=== PATIENT | female | born 1950 | race Caucasian/White ===

== ENCOUNTER 2016-06-09 19:20 | Inpatient (IN) | payer MEDICARE, OTHER ==
[~2016-06-09] VITALS: Ht 160 cm; Wt 124.0 kg
[~2016-06-09 19:20] MED LIST: NAPR-260 PO
[2016-06-09] MEDS ORDERED: ALBUTEROL 0.083% (NEB) 2.5 MG/3 ML AMP HHN STA (20:52)
[2016-06-09] MEDS ORDERED: IPRATROPIUM (NEB) 0.5 MG/2.5 ML AMP HHN ONE (21:00)
[2016-06-09] MEDS ORDERED: METHYLPREDNISOLONE 125 MG INJ IM ONE (21:00)
--- NOTE | 2016-06-09 22:38 | RADRPT ---
PROCEDURE: XR Chest. CLINICAL INDICATION: Cough. TECHNIQUE: Single frontal chest x-ray. COMPARISON: 07/17/2015 FINDINGS: Heart is enlarged.. There is mild pulmonary vascular congestion.. There is elevated right hemidiaph ragm, unchanged. There is right basilar atelectasis.. There is no pleural effusion. There is no p neumothorax. There are degenerative changes of the acromioclavicular joint.. IMPRESSION: Cardiomegaly. Mild pulmonary vascular ingestion. Chronically elevated right hemidiaphragm. RPTAT: [facility] .Munir Goetz MD, Date Time Electronically viewed and signed by .Munir Goetz MD, on 06/09/2016 22:38 .K/
--- NOTE | 2016-06-09 23:10 | ERA ---
ER Documentation Chief Complaint Date/Time DATE: 06/09/16 TIME: 23:08 Chief Complaint states asthma/cough/sob x 2 days HPI This is a 65-year-old female presents to the ER with a cough for the last 6 days. Patient went to her primary care doctor and was given azithromycin. Patient however began to feel short of breath 2 days ago. Patient states she has a past medical history of asthma. She has had fevers at home. She denies any sore throat. She denies any ear pain. There are no sick contacts at home. ROS 12 point review of systems was done, all negative except per HPI. 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") Hx Alcohol Use: No Hx Substance Use: No Hx Tobacco Use: No Smoking Status: Never smoker Physical Exam Vitals Vital Signs Date Time Temp Pulse Resp B/P Pulse Ox O2 Delivery O2 Flow Rate FiO2 06/09/16 23:03 84 Room Air 06/09/16 21:22 85 22 90 21 06/09/16 19:30 99.3 90 20 140/63 92 Physical Exam GENERAL: The patient is well-developed, well-nourished, in no acute distress. HEENT: Atraumatic. Pupils equal, round and reactive to light. Extraocular muscles are grossly intact. Conjunctivae pink, no discharge. Bilateral tympanic membranes are clear with no evidence of erythema, effusion or dulling of the light reflex. Tonsilar erythema with no exudates or uvular deviation. Clear rhinorrhea. RESPIRATORY: Expiratory wheezing in all lung stratton. Patient has some accessory muscle use while breathing. She is able to complete full sentences. HEART: Regular rate and rhythm. No murmurs, clicks, rubs or gallops. EXTREMITIES: No clubbing or cyanosis. Full range of motion. Grossly neurovascularly intact. NEUROLOGIC: Alert and oriented. Cranial nerves II through XII are intact. SKIN: There is no rash. The skin is warm and dry. Results 24 hrs Current Medications Medications (Trade) Dose Ordered Sig/Carson Route PRN Reason Start Time Stop Time Status Last Admin Dose Admin Albuterol (Proventil 0.083% (Neb)) 10 mg ONCE STAT HHN 06/09/16 20:52 06/09/16 20:56 DC 06/09/16 21:16 Ipratropium [place] (Atrovent 0.02% (Neb)) 0.5 mg ONCE ONCE HHN 06/09/16 21:00 06/09/16 21:01 DC 06/09/16 21:16 Methylprednisolone Sodium Succinate (Solu-Medrol) 125 mg ONCE ONCE IM 06/09/16 21:00 06/09/16 21:01 DC 06/09/16 21:03 Procedures/MDM Patient was given an hour-long nebulizer treatment with albuterol and ipratropium. She was also given Solu-Medrol. Patient stated she felt significantly better however her oxygen went down to 84. Patient will be transferred over to ER 1 for further management and care and possible admission. Patient will also be worked up for possible CHF. Departure Diagnosis: Primary Impression: Shortness of breath Condition: Stable KAL HYDE Jun 09, 2016 23:10
[2016-06-09] MEDS ORDERED: ASPIRIN 325 MG TAB PO STA (23:13)
[2016-06-09 23:40] LABS: ADD SCAN DIFF NO
[2016-06-09 23:50] LABS: CHLORIDE 97 mmol/L (97-110); POTASSIUM 4.7 mmol/L (3.5-5.1); SODIUM 134 mmol/L (135-144)
[2016-06-09 23:52] LABS: PARTIAL THROMBOPLASTIN TIME 29.2 Sec (25.0-35.0); PROTIME 13.2 Sec (12.2-14.2)
[2016-06-09 23:53] LABS: ANION GAP 11 (8-16); BLOOD UREA NITROGEN 16 mg/dl (7-20); CALCIUM 8.3 mg/dl (8.4-10.2); CARBON DIOXIDE 31 mmol/L (21-31); CREATININE 0.58 mg/dl (0.44-1.00); GLUCOSE 316 mg/dl (70-220)
[2016-06-10] VITALS (10 sets, daily range): BP systolic 127–158; BP diastolic 59–79; PULSE 80–95; RESP 19–24; Ht 160 cm; Wt 124.0 kg
[2016-06-10 00:02] LABS: B-TYPE NATRIURETIC PEPTIDE 24 PG/ML (0-125)
[2016-06-10 00:04] LABS: ABNORMAL IP MESSAGE 1; BASOPHILS % 0.3 % (0.0-2.0); EOSINOPHILS % 0.8 % (0.0-7.0); HEMATOCRIT 45.1 % (37.0-47.0); HEMOGLOBIN 14.2 g/dl (12.0-16.0); LYMPHOCYTES # 0.8 10^3/ul (0.8-2.9); LYMPHOCYTES % 21.1 % (15.0-51.0); MEAN CORPUSCULAR HEMOGLOBIN 31.8 pg (29.0-33.0); MEAN CORPUSCULAR HGB CONC 31.5 g/dl (32.0-37.0); MEAN CORPUSCULAR VOLUME 100.9 fl (82.0-101.0); MEAN PLATELET VOLUME 11.9 fl (7.4-10.4); MONOCYTE # 0.2 10^3/ul (0.3-0.9); MONOCYTES % 6.1 % (0.0-11.0); NEUTROPHIL # 2.7 10^3/ul (1.6-7.5); NEUTROPHILS % 70.9 % (39.0-77.0); PLATELET COUNT 80 10^3/UL (140-415); RED BLOOD COUNT 4.47 10^6/ul (4.20-5.40); RED CELL DISTRIBUTION WIDTH 15.6 % (11.5-14.5); WHITE BLOOD COUNT 3.8 10^3/ul (4.8-10.8)
[2016-06-10 00:18] LABS: AADO2 Arterial 74.2 mmHg (7.0-24.0); Allen Test ACCEPTAB; Arterial Base Excess -0.2 mmol/L (-3.0-3); Arterial COHb 0.5 % (0.0-3.0); Arterial Fraction of Oxyhgb 93.8 % (93.0-99.0); Arterial HCO3 26.9 mmol/L (22.0-26.0); Arterial MetHb 0.4 % (0.0-1.5); Arterial Total Hemglobin 15.4 g/dl (12.0-18.0); MODE NASAL CANNULA
[2016-06-10 00:18] LABS: TROPONIN-I < 0.012 ng/ml (0.00-0.12)
[2016-06-10] MEDS ORDERED: ALBUTEROL 0.083% (NEB) 2.5 MG/3 ML AMP HHN STA (03:52)
[2016-06-10] MEDS ORDERED: NACL 0.9% 3 ML SYG IV SCH (04:00)
[2016-06-10] MEDS ORDERED: OSELTAMIVIR 75 MG CAP PO ONE (04:00)
[2016-06-10] MEDS ORDERED: ALBUTEROL 0.083% (NEB) 2.5 MG/3 ML AMP NEB PRN (04:00)
[2016-06-10] MEDS: ALBUTEROL/IPRATROPIUM (NEB) 3 ML AMP NEB SCH ×5 (04:00→20:37)
[2016-06-10] MEDS ORDERED: LORAZEPAM 0.5 MG TAB PO PRN (04:00)
[2016-06-10] MEDS ORDERED: ONDANSETRON 4 MG TAB PO PRN (04:00)
[2016-06-10] MEDS ORDERED: NITROGLYCERIN (SL) 0.4 MG TAB SL PRN (04:00)
[2016-06-10] MEDS ORDERED: METOCLOPRAMIDE 10 MG INJ IV PRN (04:00)
--- NOTE | 2016-06-10 04:02 | HP ---
Date/Time of Note Date/Time of Note DATE: 06/10/16 TIME: 03:59 Assessment/Plan VTE Prophylaxis VTE Prophylaxis Intervention: other (LOVENOX) Lines/Catheters IV Catheter Type (from [facility]): Saline Lock Assessment/Plan Assessment/Plan 1) Influenza A - Admit to Med Surg - Supportive Care/No need for Tamiflu. Must be started within 48 hours to symptom onset to have any appreciable effect. 2) Asthma exacerbation due to Influenza A Virus - Regular and PRN Nebulizer Treatments - IV Steroids 3) Diabetes Type 2, uncontrolled, with Hyperglycemia - Constant Carb Diet - Insulin Sliding Scale - HgbA1c - if elevated, then Diabetic Teaching should be done - Expect WBCs and Glucose to rise because of the steroids she is receiving 4) Shortness of breath - This will improve while doing the steroids and nebulizer treatments. 5) Morbid Obesity - Oil Lease Buyer Consult - Encourage more activity each day as your lung conditions improve. HPI/ROS Admit Date/Time Admit Date/Time 06/10/16 0346 Hx of Present Illness Chief Complaint Cough and SOB x 2 days HPI This is a 65-year-old female presents to the ER with a cough for the last 6 days. Patient went to her primary care doctor and was given azithromycin. Patient however began to feel short of breath 2 days ago. Patient states she has a past medical history of asthma. She has had fevers at home. She denies any sore throat. She denies any ear pain. There are no sick contacts at home. ER 2 Course per ER 2 Provider: Patient was given an hour-long nebulizer treatment with albuterol and ipratropium. She was also given Solu-Medrol. Patient stated she felt significantly better however her oxygen went down to 84. Patient will be transferred over to ER 1 for further management and care and possible admission. Patient will also be worked up for possible CHF. ER 1 Course per ER 1 Provider: Her workup was begun in ED 2 however she became hypoxic after breathing treatment I had her transferred the ER one way started a workup over with concern for possible congestive heart failure she did show pulmonary vascular engorgement on her chest x-ray. Did give her another albuterol breathing treatment. She was placed on oxygen and a monitor. I ordered a liter of normal saline was ordered after it was confirmed that she did not have congestive heart failure she has a very low BNP. This will also treat her hyperglycemia. She has had symptoms for 5 days however did give her a Tamiflu 75 mg p.o. still has mild tachycardia and is being admitted to telemetry for further workup and management. I spoke with Dr. Hensley will be admitting. ROS General: Admits: Fever, Malaise, Poor Appetite Denies: Chills, Generalized Body Aches Eyes: Admits: Denies: Blurry Vision, Double Vision HENT: Admits: Denies: Ear Pain/Pressure, Runny/Stuffy Nose, Sore Throat Cardiovascular: Admits: Denies: Chest Pain, Palpitations, Leg Swelling Pulmonary: Admits: Cough, Shortness of Breath Denies: Wheeze Gastrointestinal: Admits: Denies: Abdominal Pain, Nausea, Vomiting, Diarrhea, Blood in Stool, Black-Colored Stool Urogenital: Admits: Denies: Burning with Urination, Urinary Frequency Musculoskeletal: Admits: Denies: Joint Pain, Joint Swelling, Muscle Pain Neurological: Admits: Denies: Headache, Dizziness, Numbness, Tingling, Shooting Pains Integumentary: Admits: Denies: Rash, Itch PMH/Family/Social Past Medical History HTN; Asthma/COPD; DM Type 2; Neck Cancer, on Radiation Past Surgical History ; Thyroid Surgery; Umbilical Hernia Social History Alcohol Use: none Smoking Status: Never smoker Drug Use: none Exam/Review of Systems Vital Signs Vitals Vital Signs Date Time Temp Pulse Resp B/P Pulse Ox O2 Delivery O2 Flow Rate FiO2 06/10/16 02:00 103 23 92/67 97 Nasal Cannula 3.0 06/09/16 21:22 21 06/09/16 19:30 99.3 Exam Exam General: 65 year old, morbidly obese female, appears older than her stated age , alert, sitting on the side of the bed. in no apparent distress. Appears tired , non-toxic Eyes: Sclera White, EOMI HENT: Normocephalic/Atraumatic, External Ears/Nose Normal, Moist Mucus Membranes Neck: Supple, Trachea Midline Cardiovascular: Normal Rate, Normal Rhythm, Normal S1 and S2, No Murmur, No Extra Sounds. Radial pulse + 2/4 and regular, bilaterally. Trace pedal edema to mid-leg bilaterally. Pulmonary: Clear to Auscultation Bilaterally, but generally decreased airflow throughout. Normal Respiratory Effort, No Rales, Rhonchi or Wheezes, but coughs a lot with each deep breath Gastrointestinal: Normoactive Bowel Sounds, Soft, Non-Tender/Non-Distended. Exam done while patient is seated. Urogenital: Deferred Neurological: CN II - XII Grossly Intact, Non-Focal, Speech Normal Integumentary: Normal Moisture and Temperature, Good Turgor, No Jaundice, No Rash Lymphatic: No Cervical or Supraclavicular Lymphadenopathy Psychiatric: Appropriate Mood and Affect, Good Eye Contact Labs Result Diagram: 06/09/16 2335 06/09/16 2335 Medications Medications Home Meds Active Scripts Naproxen* (Naprosyn*) 500 Mg Tablet, 500 MG PO BID Y for PAIN AND/OR INFLAMMATION, #30 TAB Prov:ALEXA HERRING 07/17/15 Current Medications Medications (Trade) Dose Ordered Sig/Carson Route PRN Reason Start Time Stop Time Status Last Admin Dose Admin Albuterol (Proventil 0.083% (Neb)) 10 mg ONCE STAT N 06/09/16 20:52 06/09/16 20:56 DC 06/09/16 21:16 Ipratropium [place] (Atrovent 0.02% (Neb)) 0.5 mg ONCE ONCE HHN 06/09/16 21:00 06/09/16 21:01 DC 06/09/16 21:16 Methylprednisolone Sodium Succinate (Solu-Medrol) 125 mg ONCE ONCE IM 06/09/16 21:00 06/09/16 21:01 DC 06/09/16 21:03 Procedures Procedures Laboratory Tests Test 06/09/16 00:01 06/09/16 23:35 06/09/16 23:48 Hemoglobin A1c 9.4% Thyroid Stimulating Hormone (TSH) 1.540MIU/L White Blood Count 3.810^3/ul Red Blood Count 4.4710^6/ul Hemoglobin 14.2g/dl Hematocrit 45.1% Mean Corpuscular Volume 100.9fl Mean Corpuscular Hemoglobin 31.8pg Mean Corpuscular Hemoglobin Concent 31.5g/dl Red Cell Distribution Width 15.6% Platelet Count 8010^3/UL Mean Platelet Volume 11.9fl Neutrophils % 70.9% Lymphocytes % 21.1% Monocytes % 6.1% Eosinophils % 0.8% Basophils % 0.3% Nucleated Red Blood Cells % 0.0/100WBC Neutrophils # 2.710^3/ul Lymphocytes # 0.810^3/ul Monocytes # 0.210^3/ul Eosinophils # 0.010^3/ul Basophils # 0.010^3/ul Nucleated Red Blood Cells # 0.010^3/ul Prothrombin Time 13.2Sec Prothrombin Time Ratio 1.0 INR International Normalized Ratio 1.00 Activated Partial Thromboplast Time 29.2Sec Sodium Level 134mmol/L Potassium Level 4.7mmol/L Chloride Level 97mmol/L Carbon Dioxide Level 31mmol/L Anion Gap 11 Blood Urea Nitrogen 16mg/dl Creatinine 0.58mg/dl Glucose Level 316mg/dl Calcium Level 8.3mg/dl Troponin I < 0.012ng/ml B-Type Natriuretic Peptide 24PG/ML Blood Gas Specimen Source Blood arterial Arterial Blood Date Drawn 06/10/2016 12:13:07 AM Arterial Blood pH (Temp corrected) 7.321 Arterial Blood pCO2 (Temp correct) 53.2mmhg Arterial Blood pO2 (Temp corrected) 77.2mmHG Arterial Blood HCO3 26.9mmol/L Arterial Blood Base Excess -0.2mmol/L Arterial Blood Oxygen Saturation 94.7mmHG Jeovanny Test ACCEPTAB Arterial Blood Gas Puncture Site Right Radial Arterial Blood Carboxyhemoglobin 0.5% Arterial Blood Methemoglobin 0.4% Blood Gas A-a O2 Differential 74.2mmHg Oxyhemoglobin Percent 93.8% Total Hemoglobin 15.4g/dl Blood Gas Temperature 37.0C Blood Gas Modality NASAL CANNULA FiO2 30.0% Blood Gas Notified Whom BR Blood Gas Notified Time 06/10/2016 12:18:34 AM EKG: interpretation by ER Physician: Sinus origin of rhythm without ST or T-wave changes concerning for acute ischemia, left axis deviation. V Belt Coverer: interpretation by ER Physician: Alternating normal sinus rhythm and sinus tachycardia without arrhythmia. RADIOLOGY: PROCEDURE: XR Chest. CLINICAL INDICATION: Cough. TECHNIQUE: Single frontal chest x-ray. COMPARISON: 07/17/2015 FINDINGS: Heart is enlarged.. There is mild pulmonary vascular congestion.. There is elevated right hemidiaphragm, unchanged. There is right basilar atelectasis.. There is no pleural effusion. There is no pneumothorax. There are degenerative changes of the acromioclavicular joint.. IMPRESSION: Cardiomegaly. Mild pulmonary vascular congestion. Chronically elevated right hemidiaphragm. JET HENSLEY DO Jun 10, 2016 04:02 Heart is enlarged.. There is mild pulmonary vascular congestion.. There is elevated right hemidiaphragm, unchanged. There is right basilar atelectasis.. There is no pleural effusion. There is no pneumothorax. There are degenerative changes of the acromioclavicular joint.. IMPRESSION: Cardiomegaly. Mild pulmonary vascular congestion. Chronically elevated right hemidiaphragm. JET HENSLEY DO Jun 10, 2016 04:02 hemidiaphragm. JET HENSLEY DO Jun 10, 2016 04:02 Past Surgical History ; Thyroid Surgery; Umbilical Hernia Social History Alcohol Use: none Smoking Status: Never smoker Drug Use: none Exam/Review of Systems Vital Signs Vitals Vital Signs Date Time Temp Pulse Resp B/P Pulse Ox O2 Delivery O2 Flow Rate FiO2 06/10/16 02:00 103 23 92/67 97 Nasal Cannula 3.0 06/09/16 21:22 21 06/09/16 19:30 99.3 Exam Exam General: Eyes: Sclera White, EOMI HENT: Normocephalic/Atraumatic, External Ears/Nose Normal, Moist Mucus Membranes Neck: Supple, Trachea Midline Cardiovascular: Normal Rate, Normal Rhythm, Normal S1 and S2, No Murmur, No Extra Sounds Pulmonary: Clear to Auscultation Bilaterally, Normal Respiratory Effort, No Rales, Rhonchi or Wheezes Gastrointestinal: Normoactive Bowel Sounds, Soft, Non-Tender/Non-Distended, No Hepatosplenomegaly Appreciated, No Pulsatile Masses Urogenital: Deferred Musculoskeletal: Normal Muscle Bulk and Tone Neurological: CN II - XII Grossly Intact, Non-Focal, Speech Normal Integumentary: Normal Moisture and Temperature, Good Turgor, No Jaundice, No Rash Lymphatic: No Cervical Lymphadenopathy Psychiatric: Appropriate Mood and Affect, Good Eye Contact Physical Exam Const: [] Mild distress, mild tachypnea Head: Atraumatic Eyes: Normal Conjunctiva ENT: Normal External Ears, Nose and Mouth. Neck: Full range of motion..~ No meningismus. Resp: Mild decreased bibasilar breath sounds, coughs on exam with deep breathing. Cardio: Regular rate and rhythm, no murmurs Abd: Soft, non tender, non distended. Normal bowel sounds Skin: No petechiae or rashes Back: No midline or flank tenderness Ext: No cyanosis, trace pedal edema, distal pulses intact. Neur: Awake and alert and oriented 3, no focal deficits Psych: Normal Mood and Affect Result Diagram: 06/09/16233406/09/162334 Results 24 hrs Labs Result Diagram: 06/09/16233406/09/162334 Medications Medications Home Meds Active Scripts Naproxen* (Naprosyn*) 500 Mg Tablet, 500 MG PO BID Y for PAIN AND/OR INFLAMMATION, #30 TAB Prov:ALEXA HERRING 07/17/15 Current Medications Medications (Trade) Dose Ordered Sig/Carson Route PRN Reason Start Time Stop Time Status Last Admin Dose Admin Albuterol (Proventil 0.083% (Neb)) 10 mg ONCE STAT N 06/09/16 20:52 06/09/16 20:56 DC 06/09/16 21:16 Ipratropium [place] (Atrovent 0.02% (Neb)) 0.5 mg ONCE ONCE HHN 06/09/16 21:00 06/09/16 21:01 DC 06/09/16 21:16 Methylprednisolone Sodium Succinate (Solu-Medrol) 125 mg ONCE ONCE IM 06/09/16 21:00 06/09/16 21:01 DC 06/09/16 21:03 Procedures Procedures Laboratory Tests Test 06/09/16 00:01 06/09/16 23:35 06/09/16 23:48 Hemoglobin A1c 9.4% Thyroid Stimulating Hormone (TSH) 1.540MIU/L White Blood Count 3.810^3/ul Red Blood Count 4.4710^6/ul Hemoglobin 14.2g/dl Hematocrit 45.1% Mean Corpuscular Volume 100.9fl Mean Corpuscular Hemoglobin 31.8pg Mean Corpuscular Hemoglobin Concent 31.5g/dl Red Cell Distribution Width 15.6% Platelet Count 8010^3/UL Mean Platelet Volume 11.9fl Neutrophils % 70.9% Lymphocytes % 21.1% Monocytes % 6.1% Eosinophils % 0.8% Basophils % 0.3% Nucleated Red Blood Cells % 0.0/100WBC Neutrophils # 2.710^3/ul Lymphocytes # 0.810^3/ul Monocytes # 0.210^3/ul Eosinophils # 0.010^3/ul Basophils # 0.010^3/ul Nucleated Red Blood Cells # 0.010^3/ul Prothrombin Time 13.2Sec Prothrombin Time Ratio 1.0 INR International Normalized Ratio 1.00 Activated Partial Thromboplast Time 29.2Sec Sodium Level 134mmol/L Potassium Level 4.7mmol/L Chloride Level 97mmol/L Carbon Dioxide Level 31mmol/L Anion Gap 11 Blood Urea Nitrogen 16mg/dl Creatinine 0.58mg/dl Glucose Level 316mg/dl Calcium Level 8.3mg/dl Troponin I < 0.012ng/ml B-Type Natriuretic Peptide 24PG/ML Blood Gas Specimen Source Blood arterial Arterial Blood Date Drawn 06/10/2016 12:13:07 AM Arterial Blood pH (Temp corrected) 7.321 Arterial Blood pCO2 (Temp correct) 53.2mmhg Arterial Blood pO2 (Temp corrected) 77.2mmHG Arterial Blood HCO3 26.9mmol/L Arterial Blood Base Excess -0.2mmol/L Arterial Blood Oxygen Saturation 94.7mmHG Jeovanny Test ACCEPTAB Arterial Blood Gas Puncture Site Right Radial Arterial Blood Carboxyhemoglobin 0.5% Arterial Blood Methemoglobin 0.4% Blood Gas A-a O2 Differential 74.2mmHg Oxyhemoglobin Percent 93.8% Total Hemoglobin 15.4g/dl Blood Gas Temperature 37.0C Blood Gas Modality NASAL CANNULA FiO2 30.0% Blood Gas Notified Whom BR Blood Gas Notified Time 06/10/2016 12:18:34 AM RADIOLOGY: PROCEDURE: XR Chest. CLINICAL INDICATION: Cough. TECHNIQUE: Single frontal chest x-ray. COMPARISON: 07/17/2015 FINDINGS: Heart is enlarged.. There is mild pulmonary vascular congestion.. There is elevated right hemidiaphragm, unchanged. There is right basilar atelectasis.. There is no pleural effusion. There is no pneumothorax. There are degenerative changes of the acromioclavicular joint..
[2016-06-10] MEDS ORDERED: GLUCAGON 1 MG INJ IM PRN (04:30)
[2016-06-10] MEDS ORDERED: GLUCOSE GEL 15 GRAM TUBE PO PRN ×2 (04:30)
[2016-06-10] MEDS ORDERED: DEXTROSE 50% 50 ML SYRINGE IV PRN ×2 (04:30)
[2016-06-10] MEDS ORDERED: GLUCOSE GEL 15 GRAM TUBE BUCCAL PRN (04:30)
--- NOTE | 2016-06-10 05:50 | ERA ---
ER Documentation Chief Complaint Date/Time DATE: 06/10/16 TIME: 05:42 Chief Complaint states asthma/cough/sob x 2 days HPI This 65-year-old female presents for increasing shortness of breath and cough for the last 2 days. She has had chills at home. She does have a history of asthma/COPD. She denies chest pain except for with cough. She also has some generalized weakness and malaise. ROS All systems reviewed and are negative except as per history of present illness. 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") Hx Alcohol Use: No Hx Substance Use: No Hx Tobacco Use: No Smoking Status: Never smoker Physical Exam Vitals Vital Signs Date Time Temp Pulse Resp B/P Pulse Ox O2 Delivery O2 Flow Rate FiO2 06/10/16 04:00 101 18 132/72 97 Nasal Cannula 3.0 06/10/16 02:00 103 23 92/67 97 Nasal Cannula 3.0 06/10/16 01:00 104 20 129/65 96 Nasal Cannula 3.0 06/09/16 23:41 Nasal Cannula 2 06/09/16 23:41 Nasal Cannula 2.0 06/09/16 23:03 84 Room Air 06/09/16 21:22 85 22 90 21 06/09/16 19:30 99.3 90 20 140/63 92 Physical Exam Const: [] Mild distress, mild tachypnea Head: Atraumatic Eyes: Normal Conjunctiva ENT: Normal External Ears, Nose and Mouth. Neck: Full range of motion..~ No meningismus. Resp: Mild decreased bibasilar breath sounds, coughs on exam with deep breathing. Cardio: Regular rate and rhythm, no murmurs Abd: Soft, non tender, non distended. Normal bowel sounds Skin: No petechiae or rashes Back: No midline or flank tenderness Ext: No cyanosis, trace pedal edema, distal pulses intact. Neur: Awake and alert and oriented 3, no focal deficits Psych: Normal Mood and Affect Result Diagram: 06/09/16 0975 06/09/16 0205 Results 24 hrs Laboratory Tests Test 06/09/16 00:01 06/09/16 23:35 06/09/16 23:48 Hemoglobin A1c 9.4% Thyroid Stimulating Hormone (TSH) 1.540MIU/L White Blood Count 3.810^3/ul Red Blood Count 4.4710^6/ul Hemoglobin 14.2g/dl Hematocrit 45.1% Mean Corpuscular Volume 100.9fl Mean Corpuscular Hemoglobin 31.8pg Mean Corpuscular Hemoglobin Concent 31.5g/dl Red Cell Distribution Width 15.6% Platelet Count 8010^3/UL Mean Platelet Volume 11.9fl Neutrophils % 70.9% Lymphocytes % 21.1% Monocytes % 6.1% Eosinophils % 0.8% Basophils % 0.3% Nucleated Red Blood Cells % 0.0/100WBC Neutrophils # 2.710^3/ul Lymphocytes # 0.810^3/ul Monocytes # 0.210^3/ul Eosinophils # 0.010^3/ul Basophils # 0.010^3/ul Nucleated Red Blood Cells # 0.010^3/ul Prothrombin Time 13.2Sec Prothrombin Time Ratio 1.0 INR International Normalized Ratio 1.00 Activated Partial Thromboplast Time 29.2Sec Sodium Level 134mmol/L Potassium Level 4.7mmol/L Chloride Level 97mmol/L Carbon Dioxide Level 31mmol/L Anion Gap 11 Blood Urea Nitrogen 16mg/dl Creatinine 0.58mg/dl Glucose Level 316mg/dl Calcium Level 8.3mg/dl Troponin I < 0.012ng/ml B-Type Natriuretic Peptide 24PG/ML Blood Gas Specimen Source Blood arterial Arterial Blood Date Drawn 06/10/2016 12:13:07 AM Arterial Blood pH (Temp corrected) 7.321 Arterial Blood pCO2 (Temp correct) 53.2mmhg Arterial Blood pO2 (Temp corrected) 77.2mmHG Arterial Blood HCO3 26.9mmol/L Arterial Blood Base Excess -0.2mmol/L Arterial Blood Oxygen Saturation 94.7mmHG Jeovanny Test ACCEPTAB Arterial Blood Gas Puncture Site Right Radial Arterial Blood Carboxyhemoglobin 0.5% Arterial Blood Methemoglobin 0.4% Blood Gas A-a O2 Differential 74.2mmHg Oxyhemoglobin Percent 93.8% Total Hemoglobin 15.4g/dl Blood Gas Temperature 37.0C Blood Gas Modality NASAL CANNULA FiO2 30.0% Blood Gas Notified Whom BR Blood Gas Notified Time 06/10/2016 12:18:34 AM Current Medications Medications (Trade) Dose Ordered Sig/Carson Route PRN Reason Start Time Stop Time Status Last Admin Dose Admin Albuterol (Proventil 0.083% (Neb)) 10 mg ONCE STAT HHN 06/09/16 20:52 06/09/16 20:56 DC 06/09/16 21:16 Ipratropium Warriormine (Atrovent 0.02% (Neb)) 0.5 mg ONCE ONCE HHN 06/09/16 21:00 06/09/16 21:01 DC 06/09/16 21:16 Methylprednisolone Sodium Succinate (Solu-Medrol) 125 mg ONCE ONCE IM 06/09/16 21:00 06/09/16 21:01 DC 06/09/16 21:03 Aspirin (Aspirin) 325 mg ONCE STAT PO 06/09/16 23:13 06/09/16 23:15 DC 06/10/16 00:17 Oseltamivir Phosphate (Tamiflu) 75 mg ONCE ONCE PO 06/10/16 04:00 06/10/16 04:01 DC 06/10/16 04:30 Albuterol (Proventil 0.083% (Neb)) 5 mg ONCE STAT HHN 06/10/16 03:52 06/10/16 03:53 DC IV Flush (NS 3 ml) 3 ml PER PROTOCOL IV 06/10/16 04:00 Lorazepam (Ativan) 0.25 mg Q8H PRN PO ANXIETY 06/10/16 04:00 Ondansetron HCl (Zofran Tab) 4 mg Q6H PRN PO NAUSEA AND/OR VOMITING 06/10/16 04:00 Metoclopramide HCl (Reglan) 10 mg Q6H PRN IV NAUSEA AND/OR VOMITING 06/10/16 04:00 Methylprednisolone Sodium Succinate (Solu-Medrol) 60 mg Q6 IV 06/10/16 06:00 Nitroglycerin (Nitroglycerin (Sl Tab) 0.4 Mg) 1 tab Q5M PRN SL CHEST PAIN 06/10/16 04:00 Acetaminophen (Tylenol Tab) 650 mg Q6H PRN PO PAIN LEVEL 1-3 OR FEVER 06/10/16 04:00 Famotidine (Pepcid) 20 mg Q12 PO 06/10/16 09:00 Enoxaparin Sodium (Lovenox) 40 mg DAILY SC 06/10/16 09:00 Insulin Aspart (Novolog Insulin Pen) NOVOLOG *MILD* ALGORITHM WITH MEALS BEDTIME SC 06/10/16 08:00 Insulin Glargine (Lantus) 10 unit DAILY@08 [place] 06/10/16 08:00 Miscellaneous Information (* Miscellaneous Pharmacy Order) HYPOGLYCEMIA PROTOCOL w... ONCE ONCE XX 06/10/16 04:00 06/10/16 04:22 DC Miscellaneous Information (* Miscellaneous Pharmacy Order) Discontinue Glyburide, Glipizide,... ONCE ONCE XX 06/10/16 04:00 06/10/16 04:22 DC Miscellaneous Information (* Miscellaneous Pharmacy Order) Discontinue all previ... ONCE ONCE XX 06/10/16 04:00 06/10/16 04:22 DC Albuterol/ Ipratropium (Duoneb) 3 ml QID RESP THERAPY NEB 06/10/16 04:00 Albuterol (Proventil 0.083% (Neb)) 2.5 mg Q2H RESP THERAPY PRN NEB SHORTNESS OF BREATH 06/10/16 04:00 Diagnostic Test (Pha) (Accu-Chek) 1 ea 02 XX 06/11/16 02:00 Miscellaneous Information 1 ea NOTE XX 06/10/16 04:30 Glucose (Glutose) 15 gm Q15M PRN PO DECREASED GLUCOSE 06/10/16 04:30 Glucose (Glutose) 22.5 gm Q15M PRN PO DECREASED GLUCOSE 06/10/16 04:30 Dextrose (D50w Syringe) 25 ml Q15M PRN IV DECREASED GLUCOSE 06/10/16 04:30 Dextrose (D50w Syringe) 50 ml Q15M PRN IV DECREASED GLUCOSE 06/10/16 04:30 Glucagon (Glucagen) 1 mg Q15M PRN IM DECREASED GLUCOSE 06/10/16 04:30 Glucose (Glutose) 15 gm Q15M PRN BUCCAL DECREASED GLUCOSE 06/10/16 04:30 Procedures/MDM Influenza pneumonia with hypoxia. His workup was begun in ED 2 however she became hypoxic after breathing treatment I had her transferred the ER one way started a workup over with concern for possible congestive heart failure she did show pulmonary vascular engorgement on her chest x-ray. Did give her another albuterol breathing treatment. She was placed on oxygen and a monitor. I ordered a liter of normal saline was ordered after it was confirmed that she did not have congestive heart failure she has a very low BNP. This will also treat her hyperglycemia. She has had symptoms for 5 days however did give her a Tamiflu 75 mg p.o. still has mild tachycardia and is being admitted to telemetry for further workup and management. I spoke with Dr. Talavera will be admitting. EKG interpretation: Sinus origin of rhythm without ST or T-wave changes concerning for acute ischemia, left axis deviation. radiation control worker interpretation: Alternating normal sinus rhythm and sinus tachycardia without arrhythmia. Chest x-ray interpretation: Mild perihilar infiltrates without pulmonary edema, pneumothorax, widened mediastinum, or fractures. Departure Diagnosis: Primary Impression: Influenza, pneumonia Additional Impressions: Asthma exacerbation Hyperglycemia due to type 1 diabetes mellitus Condition: LAURA Robbins DO Jun 10, 2016 05:50
[2016-06-10] MEDS ORDERED: SOD CHLORIDE 0.9% 1,000 ML IV ONE (06:00)
[2016-06-10 06:05] LABS: CREATINE KINASE 112 IU/L (23-200)
[2016-06-10 06:14] LABS: CK-MB 0.38 ng/ml (0.0-2.4)
[2016-06-10 06:19] LABS: TROPONIN-I < 0.012 ng/ml (0.00-0.12)
[2016-06-10] MEDS: METHYLPREDNISOLONE 125 MG INJ IV SCH ×3 (06:27→20:41)
[2016-06-10] MEDS ORDERED: INSULIN GLARGINE [LANtus] 3 ML PEN SC SCH (08:00)
[2016-06-10] MEDS: FAMOTIDINE 20 MG TAB PO SCH ×2 (08:25→20:41)
[2016-06-10] MEDS: ACETAMINOPHEN 325 MG TAB PO PRN (08:25)
[2016-06-10] MEDS: ENOXAPARIN 40 MG/0.4 ML SYG SC SCH (08:35)
[2016-06-10] MEDS: INSULIN ASPART [NOVOLOG] 3 ML PEN SC SCH ×6 (08:36→20:59)
[2016-06-10] MEDS ORDERED: hydrALAzine 20 MG INJ IV PRN (10:30)
[2016-06-10] MEDS ORDERED: FUROSEMIDE 40 MG INJ IV ONE (10:30)
[2016-06-10] MEDS: OSELTAMIVIR 75 MG CAP PO SCH ×2 (11:20→20:41)
--- NOTE | 2016-06-10 11:31 | CONS ---
Date/Time of Note Date/Time of Note DATE: 06/10/16 TIME: 11:27 Assessment/Plan Assessment/Plan Additional Assessment/Plan Chest x-ray was reviewed from yesterday which is showing elevation of right hemidiaphragm which is a chronic finding. ABG was reviewed showing mild hypercapnia. Next Assessment recommendations; 1. Patient admitted for asthma exacerbation with acute bronchitis. 2. Mild CHF. 2. Morbid obesity. 4. Likely underlying sleep apnea. Recommendations: continue current treatment. Patient is currently on a very optimal treatment regimen. She will likely need to have a sleep study done on an outpatient basis. Consultation Date/Type/Reason Admit Date/Time 06/10/16 0346 Date of Consultation: Jun 10, 2016 Reason for Consultation Pulmonary consultation obtained for evaluation of shortness of breath. Next History presenting; patient is a pleasant 65-year-old lady who came into the emergency room yesterday with a 3 day history of increasing chest congestion coughing and wheezing. The patient was diagnosed with acute bronchitis and asthma exacerbation and admitted to the medical floor. According to her she is significantly improved over the last couple of hours. According to her she was doing fine before the symptoms started. Denies any high fever chills any body aches myalgias or sore throat. Past medical history; 1. History of asthma. 2. Obesity. 3. History of herniorrhaphy. 4. History of 3 C-sections. 5. No history of any diabetes or any coronary artery disease. Medications; were reviewed. Allergies; are to codeine and diphenhydramine. Social history; never smoked. No history of alcohol or drug abuse. Family history; she is she has 3 children. Various family members of diabetes hypertension in the family. 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 Review of systems; denies any headache, visual changes. Sinus symptoms. Any seizures. Any hearing loss. Any sore throat, dysphagia. Any chest pain, angina. Shortness of breath coughing chest congestion have improved. Denies any abdominal pain, nausea vomiting. Denies any abdominal pain. Any melena, hematochezia. No orthopnea. Complains of mild lower extremity edema. Weight is stable. Denies any skin changes. Social History Alcohol Use: none Smoking Status: Never smoker Drug Use: none Exam/Review of Systems Vital Signs Vitals Vital Signs Date Time Temp Pulse Resp B/P Pulse Ox O2 Delivery O2 Flow Rate FiO2 06/10/16 08:00 90 06/10/16 07:40 98.3 24 145/73 96 Nasal Cannula 06/10/16 06:18 2.0 06/09/16 21:22 21 Exam HEENT exam is; supple neck, JVD difficult to see because of short neck. Patient has fair dentition. Pharynx is clear. Pupils are midsize and reactive to light. Extraocular movements are intact. No neck masses. There is a well- healed thyroidectomy scar. Chest examination of Munir diminished breath sounds throughout bilaterally. S1-S2 audible, no murmurs. Regular rhythm. Abdomen examination; soft, nondistended. No organomegaly. Bowel sounds audible. Protuberant. Extremity exam is; trace peripheral edema. Pulses 1+ bilaterally. PRESS AND BLOW MACHINE TENDER exam; cranial nerves are grossly intact. No focal deficit. Results Result Diagram: 06/09/16 2335 06/09/16 2335 Results 24 hrs Laboratory Tests Test 06/09/16 23:35 06/09/16 23:48 06/10/16 05:19 06/10/16 08:27 White Blood Count 3.8 #L Red Blood Count 4.47 Hemoglobin 14.2 # Hematocrit 45.1 # Mean Corpuscular Volume 100.9 # Mean Corpuscular Hemoglobin 31.8 # Mean Corpuscular Hemoglobin Concent 31.5 L Red Cell Distribution Width 15.6 #H Platelet Count 80 L Mean Platelet Volume 11.9 #H Neutrophils % 70.9 Lymphocytes % 21.1 Monocytes % 6.1 Eosinophils % 0.8 Basophils % 0.3 Nucleated Red Blood Cells % 0.0 Neutrophils # 2.7 Lymphocytes # 0.8 Monocytes # 0.2 L Eosinophils # 0.0 Basophils # 0.0 Nucleated Red Blood Cells # 0.0 Prothrombin Time 13.2 Prothrombin Time Ratio 1.0 INR International Normalized Ratio 1.00 Activated Partial Thromboplast Time 29.2 Sodium Level 134 L Potassium Level 4.7 Chloride Level 97 Carbon Dioxide Level 31 Anion Gap 11 Blood Urea Nitrogen 16 Creatinine 0.58 Glucose Level 316 H Calcium Level 8.3 L Troponin I < 0.012 < 0.012 B-Type Natriuretic Peptide 24 Blood Gas Specimen Source Blood arterial Arterial Blood Date Drawn 06/10/2016 12:13:00 AM Arterial Blood pH (Temp corrected) 7.321 L Arterial Blood pCO2 (Temp correct) 53.2 H Arterial Blood pO2 (Temp corrected) 77.2 L Arterial Blood HCO3 26.9 H Arterial Blood Base Excess -0.2 Arterial Blood Oxygen Saturation 94.7 L Jeovanny Test ACCEPTAB Arterial Blood Gas Puncture Site Right Radial Arterial Blood Carboxyhemoglobin 0.5 Arterial Blood Methemoglobin 0.4 Blood Gas A-a O2 Differential 74.2 H Oxyhemoglobin Percent 93.8 Total Hemoglobin 15.4 Blood Gas Temperature 37.0 Blood Gas Modality NASAL CANNULA FiO2 30.0 Blood Gas Notified Whom BR Blood Gas Notified Time 06/10/2016 12:18:00 AM Creatine Kinase 112 Creatine Kinase Index 0.3 Creatinine Kinase MB (Mass) 0.38 Bedside Glucose 337 H Medications Medications Current Medications Lorazepam (Ativan) 0.25 mg Q8H PRN PO ANXIETY; Start 06/10/16 at 04:00 Ondansetron HCl (Zofran Tab) 4 mg Q6H PRN PO NAUSEA AND/OR VOMITING; Start at 04:00 Metoclopramide HCl (Reglan) 10 mg Q6H PRN IV NAUSEA AND/OR VOMITING; Start at 04:00 Methylprednisolone Sodium Succinate (Solu-Medrol) 60 mg Q6 IV Last administered on 06/10/16 06:27; Admin Dose 60 MG; Start 06/10/16 at 06:00 Nitroglycerin (Nitroglycerin (Sl Tab) 0.4 Mg) 1 tab Q5M PRN SL CHEST PAIN; Start 06/10/16 at 04:00 Acetaminophen (Tylenol Tab) 650 mg Q6H PRN PO PAIN LEVEL 1-3 OR FEVER Last administered on 06/10/16 08:25; Admin Dose 650 MG; Start 06/10/16 at 04:00 Famotidine (Pepcid) 20 mg Q12 PO Last administered on 06/10/16 08:25; Admin Dose 20 MG; Start 06/10/16 at 09:00 Enoxaparin Sodium (Lovenox) 40 mg DAILY SC Last administered on 06/10/16 08:35 ; Admin Dose 40 MG; Start 06/10/16 at 09:00 Diagnostic Test (Pha) (Accu-Chek) 1 ea 02 XX ; Start 06/11/16 at 02:00 Miscellaneous Information 1 ea NOTE XX ; Start 06/10/16 at 04:30 Glucose (Glutose) 15 gm Q15M PRN PO DECREASED GLUCOSE; Start 06/10/16 at 04:30 Glucose (Glutose) 22.5 gm Q15M PRN PO DECREASED GLUCOSE; Start 06/10/16 at 04: 30 Dextrose (D50w Syringe) 25 ml Q15M PRN IV DECREASED GLUCOSE; Start 06/10/16 at 04:30 Dextrose (D50w Syringe) 50 ml Q15M PRN IV DECREASED GLUCOSE; Start 06/10/16 at 04:30 Glucagon (Glucagen) 1 mg Q15M PRN IM DECREASED GLUCOSE; Start 06/10/16 at 04:30 Glucose (Glutose) 15 gm Q15M PRN BUCCAL DECREASED GLUCOSE; Start 06/10/16 at 04 :30 Oseltamivir Phosphate (Tamiflu) 75 mg BID PO ; Start 06/10/16 at 11:00 Insulin Glargine (Lantus) 25 unit DAILY@08 [place] ; Start 06/11/16 at 08:00 Hydralazine HCl (Apresoline) 10 mg Q6H PRN IV SBP>160; Start 06/10/16 at 10:30 Enalapril Maleate (Vasotec) 2.5 mg DAILY PO ; Start 06/10/16 at 12:00 PAOLA JIMENES Jun 10, 2016 11:31
[2016-06-10] MEDS: AZITHROMYCIN 250 MG TAB PO SCH (12:15)
[2016-06-10] MEDS ORDERED: NPH, HUMAN INSULIN ISOPHANE 3ML VIAL SC ONE (13:30)
[2016-06-10] MEDS: ENALAPRIL 2.5 MG TAB PO SCH (13:53)
[2016-06-10 14:32] LABS: CREATINE KINASE 116 IU/L (23-200)
[2016-06-10 14:42] LABS: CK-MB 0.41 ng/ml (0.0-2.4)
[2016-06-10 14:51] LABS: TROPONIN-I < 0.012 ng/ml (0.00-0.12)
[2016-06-10] MEDS ORDERED: INSULIN ASPART [NOVOLOG] 3 ML PEN SC ONE (17:30)
[2016-06-10] MEDS: INSULIN GLARGINE [LANtus] 3 ML PEN SC SCH (21:00)
[2016-06-10] MEDS: NPH, HUMAN INSULIN ISOPHANE 3ML VIAL SC SCH (21:25)
[2016-06-11] VITALS (12 sets, daily range): BP systolic 123–143; BP diastolic 58–82; PULSE 75–90; RESP 17–19
[2016-06-11] MEDS: ACCUCHECK AT 2AM (Patients on SS coverage) XX SCH (02:00)
[2016-06-11 06:03] LABS: ADD SCAN DIFF NO
[2016-06-11 06:20] LABS: ABNORMAL IP MESSAGE 1; HEMATOCRIT 45.5 % (37.0-47.0); HEMOGLOBIN 14.3 g/dl (12.0-16.0); LYMPHOCYTES # 1.1 10^3/ul (0.8-2.9); LYMPHOCYTES % 15.1 % (15.0-51.0); MEAN CORPUSCULAR HEMOGLOBIN 31.8 pg (29.0-33.0); MEAN CORPUSCULAR HGB CONC 31.4 g/dl (32.0-37.0); MEAN CORPUSCULAR VOLUME 101.1 fl (82.0-101.0); MEAN PLATELET VOLUME 11.4 fl (7.4-10.4); MONOCYTE # 0.6 10^3/ul (0.3-0.9); NEUTROPHIL # 5.3 10^3/ul (1.6-7.5); NEUTROPHILS % 76.6 % (39.0-77.0); PLATELET COUNT 97 10^3/UL (140-415)
[2016-06-11 06:42] LABS: PHOSPHORUS 4.5 mg/dl (2.5-4.9)
[2016-06-11 06:43] LABS: MAGNESIUM 2.1 mg/dl (1.7-2.5)
[2016-06-11 06:47] LABS: POTASSIUM 4.8 mmol/L (3.5-5.1)
[2016-06-11 06:50] LABS: CREATININE 0.56 mg/dl (0.44-1.00)
[2016-06-11 06:51] LABS: CALCIUM 8.6 mg/dl (8.4-10.2); CHOL/HDL RATIO 4.2 RATIO
[2016-06-11] MEDS: ALBUTEROL/IPRATROPIUM (NEB) 3 ML AMP NEB SCH ×4 (07:45→20:31)
[2016-06-11] MEDS ORDERED: INSULIN GLARGINE [LANtus] 3 ML PEN SC SCH (08:00)
[2016-06-11] MEDS: INSULIN ASPART [NOVOLOG] 3 ML PEN SC SCH ×7 (08:22→21:00)
[2016-06-11] MEDS: OSELTAMIVIR 75 MG CAP PO SCH ×2 (09:21→21:08)
[2016-06-11] MEDS: ENALAPRIL 2.5 MG TAB PO SCH (09:22)
[2016-06-11] MEDS: AZITHROMYCIN 250 MG TAB PO SCH (09:22)
[2016-06-11] MEDS: METHYLPREDNISOLONE 125 MG INJ IV SCH (09:22)
[2016-06-11] MEDS: FAMOTIDINE 20 MG TAB PO SCH ×2 (09:22→21:08)
[2016-06-11] MEDS: ENOXAPARIN 40 MG/0.4 ML SYG SC SCH (09:29)
[2016-06-11] MEDS: NPH, HUMAN INSULIN ISOPHANE 3ML VIAL SC SCH ×2 (09:30→21:20)
--- NOTE | 2016-06-11 16:05 | PN ---
Date/Time of Note Date/Time of Note DATE: 06/11/16 TIME: 16:02 Assessment/Plan VTE Prophylaxis VTE Prophylaxis Intervention: LMWH Lines/Catheters IV [facility] Assessment/Plan Chief Complaint/Hosp Course Assessment and plan 1. Asthma exacerbation with acute bronchitis. Continue with bronchodilators. Continue on steroid treatment. Oncology Rep Specialist following. On antibiotics. 2. Influenza A positive. Continue on Tamiflu 3. Morbid obesity. Weight reduction advised 4. Type 2 diabetes. Continue on insulin regimen. DVT prophylaxis: Lovenox Disposition and plan: Still noted with shortness of breath and dyspnea on exertion with moderate wheezing. Await clinical improvement. Continue inpatient monitoring Discussed plan of care with Dr. Diego Problems: Subjective 24 Hr Interval Summary Free Text/Dictation Still reports having wheezing and shortness of breath Exam/Review of Systems Vital Signs Vitals Vital Signs Date Time Temp Pulse Resp B/P Pulse Ox O2 Delivery O2 Flow Rate FiO2 06/11/16 15:39 2.0 06/11/16 15:37 74 20 98 Nasal Cannula 06/11/16 15:31 98.6 125/64 06/09/16 21:22 21 Intake and Output 06/10/16 06/10/16 06/11/16 14:59 22:59 06:59 Intake Total 1000 ml 850 ml Balance 1000 ml 850 ml Exam General: In mild distress secondary to shortness of breath. Morbidly obese Eyes: pupils equal round, Anicteric sclera Neck: Supple nontender, no JVD Cardiac: S1, S2 auscultated, regular rhythm and rate Pulmonary: Wheezing auscultated bilateral lung field GI: Abdomen soft nontender nondistended, bowel sounds active Extremities: No edema noted bilaterally on lower extremities Skin: Clean dry and intact Neurologic: Alert to person place and time and situation Results Result Diagram: 06/11/16 0442 06/11/16 0442 Results 24 hrs Laboratory Tests Test 06/10/16 17:08 06/10/16 17:33 06/10/16 20:38 06/11/16 02:38 Bedside Glucose 404 *H 349 H 313 H Glucose Level 521 #*H Test 06/11/16 04:42 06/11/16 08:15 06/11/16 12:24 White Blood Count 7.0 # Red Blood Count 4.50 Hemoglobin 14.3 Hematocrit 45.5 Mean Corpuscular Volume 101.1 H Mean Corpuscular Hemoglobin 31.8 Mean Corpuscular Hemoglobin Concent 31.4 L Red Cell Distribution Width 15.0 H Platelet Count 97 #L Mean Platelet Volume 11.4 H Neutrophils % 76.6 Lymphocytes % 15.1 Monocytes % 8.0 Eosinophils % 0.0 Basophils % 0.0 Nucleated Red Blood Cells % 0.0 Neutrophils # 5.3 Lymphocytes # 1.1 Monocytes # 0.6 Eosinophils # 0.0 Basophils # 0.0 Nucleated Red Blood Cells # 0.0 Sodium Level 135 Potassium Level 4.8 Chloride Level 96 L Carbon Dioxide Level 35 H Anion Gap 9 Blood Urea Nitrogen 27 #H Creatinine 0.56 Glucose Level 355 #H Calcium Level 8.6 Phosphorus Level 4.5 Magnesium Level 2.1 Triglycerides Level 134 Cholesterol Level 181 LDL Cholesterol, Calculated 111 HDL Cholesterol 43 Cholesterol/HDL Ratio 4.2 Bedside Glucose 251 H 354 H Medications Medications Current Medications Lorazepam (Ativan) 0.25 mg Q8H PRN PO ANXIETY; Start 06/10/16 at 04:00 Ondansetron HCl (Zofran Tab) 4 mg Q6H PRN PO NAUSEA AND/OR VOMITING; Start at 04:00 Metoclopramide HCl (Reglan) 10 mg Q6H PRN IV NAUSEA AND/OR VOMITING; Start at 04:00 Nitroglycerin (Nitroglycerin (Sl Tab) 0.4 Mg) 1 tab Q5M PRN SL CHEST PAIN; Start 06/10/16 at 04:00 Acetaminophen (Tylenol Tab) 650 mg Q6H PRN PO PAIN LEVEL 1-3 OR FEVER Last administered on 06/10/16 08:25; Admin Dose 650 MG; Start 06/10/16 at 04:00 Famotidine (Pepcid) 20 mg Q12 PO Last administered on 06/11/16 09:22; Admin Dose 20 MG; Start 06/10/16 at 09:00 Enoxaparin Sodium (Lovenox) 40 mg DAILY SC Last administered on 06/11/16 09:29 ; Admin Dose 40 MG; Start 06/10/16 at 09:00 Diagnostic Test (Pha) (Accu-Chek) 1 ea 02 XX ; Start 06/11/16 at 02:00 Miscellaneous Information 1 ea NOTE XX ; Start 06/10/16 at 04:30 Glucose (Glutose) 15 gm Q15M PRN PO DECREASED GLUCOSE; Start 06/10/16 at 04:30 Glucose (Glutose) 22.5 gm Q15M PRN PO DECREASED GLUCOSE; Start 06/10/16 at 04: 30 Dextrose (D50w Syringe) 25 ml Q15M PRN IV DECREASED GLUCOSE; Start 06/10/16 at 04:30 Dextrose (D50w Syringe) 50 ml Q15M PRN IV DECREASED GLUCOSE; Start 06/10/16 at 04:30 Glucagon (Glucagen) 1 mg Q15M PRN IM DECREASED GLUCOSE; Start 06/10/16 at 04:30 Glucose (Glutose) 15 gm Q15M PRN BUCCAL DECREASED GLUCOSE; Start 06/10/16 at 04 :30 Oseltamivir Phosphate (Tamiflu) 75 mg BID PO Last administered on 06/11/16 09: 21; Admin Dose 75 MG; Start 06/10/16 at 11:00 Hydralazine HCl (Apresoline) 10 mg Q6H PRN IV SBP>160; Start 06/10/16 at 10:30 Enalapril Maleate (Vasotec) 2.5 mg DAILY PO Last administered on 06/11/16 09: 22; Admin Dose 2.5 MG; Start 06/10/16 at 12:00 Azithromycin (Zithromax) 500 mg DAILY PO Last administered on 06/11/16 09:22; Admin Dose 500 MG; Start 06/10/16 at 11:30 Methylprednisolone Sodium Succinate (Solu-Medrol) 60 mg Q12 IV Last administered on 06/11/16 09:22; Admin Dose 60 MG; Start 06/10/16 at 21:00 Insulin Human NPH (Humulin N) 10 unit BID SC Last administered on 06/11/16 09: 30; Admin Dose 10 UNIT; Start 06/10/16 at 21:00 Insulin Glargine (Lantus) 37 unit DAILY@20 SC Last administered on 06/10/16 21 :00; Admin Dose 37 UNIT; Start 06/10/16 at 20:00 YANA NGUYEN Jun 11, 2016 16:05
--- NOTE | 2016-06-11 16:10 | CONS ---
Date/Time of Note Date/Time of Note DATE: 06/11/16 TIME: 16:06 Consult Date/Type/Reason Admit Date/Time Jun 10, 2016 at 03:58 Initial Consult Date 06/10/16 Type of Consultation: Pulmonary Subjective Patient comfortable this morning sitting up in bed in no respiratory distress Awake alert and oriented States her has improved Objective Vital Signs Date Time Temp Pulse Resp B/P Pulse Ox O2 Delivery O2 Flow Rate FiO2 06/11/16 15:39 2.0 06/11/16 15:37 74 20 98 Nasal Cannula 06/11/16 15:31 98.6 125/64 06/09/16 21:22 21 Intake and Output 06/10/16 06/10/16 06/11/16 15:00 23:00 07:00 Intake Total 1000 ml 850 ml Balance 1000 ml 850 ml Exam GENERAL: Morbidly obese lady comfortable at rest no acute distress VITAL SIGNS: per chart NECK: Supple. No JVD or lymphadenopathy. CARDIAC EXAM: S1, S2. No added sounds or murmurs. CHEST: Diminished air entry bilaterally ABDOMEN: Soft, nontender. No guarding or rebound. EXTREMITIES: No cyanosis, clubbing, edema +1 NEUROLOGIC: Generalized weakness. No focal deficits. Results/Medications Result Diagram: 06/11/16 0442 06/11/16 0442 Results 24 hrs Laboratory Tests Test 06/10/16 17:08 06/10/16 17:33 06/10/16 20:38 06/11/16 02:38 Bedside Glucose 404 *H 349 H 313 H Glucose Level 521 #*H Test 06/11/16 04:42 06/11/16 08:15 06/11/16 12:24 White Blood Count 7.0 # Red Blood Count 4.50 Hemoglobin 14.3 Hematocrit 45.5 Mean Corpuscular Volume 101.1 H Mean Corpuscular Hemoglobin 31.8 Mean Corpuscular Hemoglobin Concent 31.4 L Red Cell Distribution Width 15.0 H Platelet Count 97 #L Mean Platelet Volume 11.4 H Neutrophils % 76.6 Lymphocytes % 15.1 Monocytes % 8.0 Eosinophils % 0.0 Basophils % 0.0 Nucleated Red Blood Cells % 0.0 Neutrophils # 5.3 Lymphocytes # 1.1 Monocytes # 0.6 Eosinophils # 0.0 Basophils # 0.0 Nucleated Red Blood Cells # 0.0 Sodium Level 135 Potassium Level 4.8 Chloride Level 96 L Carbon Dioxide Level 35 H Anion Gap 9 Blood Urea Nitrogen 27 #H Creatinine 0.56 Glucose Level 355 #H Calcium Level 8.6 Phosphorus Level 4.5 Magnesium Level 2.1 Triglycerides Level 134 Cholesterol Level 181 LDL Cholesterol, Calculated 111 HDL Cholesterol 43 Cholesterol/HDL Ratio 4.2 Bedside Glucose 251 H 354 H Medications Current Medications Lorazepam (Ativan) 0.25 mg Q8H PRN PO ANXIETY; Start 06/10/16 at 04:00 Ondansetron HCl (Zofran Tab) 4 mg Q6H PRN PO NAUSEA AND/OR VOMITING; Start at 04:00 Metoclopramide HCl (Reglan) 10 mg Q6H PRN IV NAUSEA AND/OR VOMITING; Start at 04:00 Nitroglycerin (Nitroglycerin (Sl Tab) 0.4 Mg) 1 tab Q5M PRN SL CHEST PAIN; Start 06/10/16 at 04:00 Acetaminophen (Tylenol Tab) 650 mg Q6H PRN PO PAIN LEVEL 1-3 OR FEVER Last administered on 06/10/16 08:25; Admin Dose 650 MG; Start 06/10/16 at 04:00 Famotidine (Pepcid) 20 mg Q12 PO Last administered on 06/11/16 09:22; Admin Dose 20 MG; Start 06/10/16 at 09:00 Enoxaparin Sodium (Lovenox) 40 mg DAILY SC Last administered on 06/11/16 09:29 ; Admin Dose 40 MG; Start 06/10/16 at 09:00 Diagnostic Test (Pha) (Accu-Chek) 1 ea 02 XX ; Start 06/11/16 at 02:00 Miscellaneous Information 1 ea NOTE XX ; Start 06/10/16 at 04:30 Glucose (Glutose) 15 gm Q15M PRN PO DECREASED GLUCOSE; Start 06/10/16 at 04:30 Glucose (Glutose) 22.5 gm Q15M PRN PO DECREASED GLUCOSE; Start 06/10/16 at 04: 30 Dextrose (D50w Syringe) 25 ml Q15M PRN IV DECREASED GLUCOSE; Start 06/10/16 at 04:30 Dextrose (D50w Syringe) 50 ml Q15M PRN IV DECREASED GLUCOSE; Start 06/10/16 at 04:30 Glucagon (Glucagen) 1 mg Q15M PRN IM DECREASED GLUCOSE; Start 06/10/16 at 04:30 Glucose (Glutose) 15 gm Q15M PRN BUCCAL DECREASED GLUCOSE; Start 06/10/16 at 04 :30 Oseltamivir Phosphate (Tamiflu) 75 mg BID PO Last administered on 06/11/16 09: 21; Admin Dose 75 MG; Start 06/10/16 at 11:00 Hydralazine HCl (Apresoline) 10 mg Q6H PRN IV SBP>160; Start 06/10/16 at 10:30 Enalapril Maleate (Vasotec) 2.5 mg DAILY PO Last administered on 06/11/16 09: 22; Admin Dose 2.5 MG; Start 06/10/16 at 12:00 Azithromycin (Zithromax) 500 mg DAILY PO Last administered on 06/11/16 09:22; Admin Dose 500 MG; Start 06/10/16 at 11:30 Methylprednisolone Sodium Succinate (Solu-Medrol) 60 mg Q12 IV Last administered on 06/11/16 09:22; Admin Dose 60 MG; Start 06/10/16 at 21:00 Insulin Human NPH (Humulin N) 10 unit BID SC Last administered on 06/11/16 09: 30; Admin Dose 10 UNIT; Start 06/10/16 at 21:00 Insulin Glargine (Lantus) 37 unit DAILY@20 SC Last administered on 06/10/16 21 :00; Admin Dose 37 UNIT; Start 06/10/16 at 20:00 Assessment/Plan Chief Complaint/Hosp Course Assessment 1. Acute tracheobronchitis 2. Likely pulmonary edema with diastolic dysfunction decompensated 3. Probable underlying obstructive sleep apnea 4. Thrombocytopenia unclear etiology Recommendations 1. Continue supplemental O2 2. Continue bronchodilators 3. Continue glycemic management 4. Decrease steroids Disposition Consider transfer to [facility] floor Hopefully discharge in the next 24-48 hours Problems: KRIS BELL MD, [facility] Jun 11, 2016 16:09
--- NOTE | 2016-06-11 17:43 | CONS ---
Date/Time of Note Date/Time of Note DATE: 06/11/16 TIME: 17:37 Assessment/Plan Assessment/Plan Problems: (1) Influenza A Status: Acute Comment: Patient's on appropriate treatment for this. She is improving as expected. (2) Diabetes mellitus type 2 in obese Status: Chronic Comment: The patient was unaware of this diagnosis but given the A1c in excess of 9 at the time of admission she is a diabetic on the basis of her DNA and her morbid obesity. She should be initiated on treatment using at the minimum metformin and followed up as an outpatient. A weight loss protocol of even 10 kg would probably negate the need for medication treatment. However given the patient's on steroids at this point time we need to have her on insulin while she is receiving the steroids to help control the drive from the steroids. (3) Morbid obesity due to excess calories Status: Chronic Comment: Counseled extensively in [place] (4) Hx of papillary thyroid carcinoma Onset Date: ~ 05/2001 Status: Chronic Comment: She needs to be maintained on suppressive dose therapy with a TSH reduced until the year 2021 at which time she can be considered cured (5) Status post complete thyroidectomy Status: Chronic Comment: Noted there is no evidence of hypocalcemia (6) Family history of endocrine and metabolic disease Comment: Noted this matches the clinical picture (7) Asthma exacerbation Status: Acute Comment: She is on treatment now and hopefully will improve nicely Consultation Date/Type/Reason Admit Date/Time Jun 10, 2016 at 03:58 Date of Consultation: Jun 11, 2016 Type of Consultation: Endocrinology Reason for Consultation Steroid-induced marked hyperglycemia and a [id number] type II diabetic Referring Provider: HERMANN CEDILLO Hx of Present Illness Pleasant 65-year-old female who reports that she does not have diabetes at home. She reports that she is unaware of this diagnosis although our admission labs demonstrated an outpatient A1c in excess of 9. She is admitted due to influenza A driven asthma exacerbation with near respiratory failure. She is on IV Solu-Medrol to help with the respiratory issues which is driving up her sugars. Again she has not been on any diabetic medications in the home environment. Constitutional: chills Eyes: no complaints ENT: no complaints Respiratory: cough, shortness of breath, wheezing Cardiovascular: no complaints Gastrointestinal: no complaints Genitourinary: no complaints Musculoskeletal: no complaints Skin: no complaints Neurologic: no complaints Past Medical History Morbid obesity; insulin resistance syndrome with diabetes mellitus type 2 new diagnosis; history of papillary carcinoma thyroid 2002 on long-term thyroid hormone suppression therapy; Medical History: hypothyroid Past Surgical History Status post total thyroidectomy in 2001 [facility] Family History Significant Family History: COPD, diabetes, hypertension Social History Alcohol Use: none Smoking Status: Never smoker Drug Use: none Exam/Review of Systems Vital Signs Vitals Vital Signs Date Time Temp Pulse Resp B/P Pulse Ox O2 Delivery O2 Flow Rate FiO2 06/11/16 16:21 90 06/11/16 15:39 2.0 06/11/16 15:37 20 98 Nasal Cannula 06/11/16 15:31 98.6 125/64 06/09/16 21:22 21 Intake and Output 06/10/16 06/10/16 06/11/16 15:00 23:00 07:00 Intake Total 1000 ml 850 ml Balance 1000 ml 850 ml Exam Morbidly obese female lying in bed. Constitutional: alert, oriented Eyes: EOMI, nl conjunctiva, nl lids, nl sclera Neck: non-tender, other (No palpable thyroid tissue), supple Respiratory: wheezing Cardiovascular: nl pulses, regular rate and rhythm Gastrointestinal: nl liver, spleen, non-tender, soft Results Result Diagram: 06/11/1644106/11/16 0442 Results 24 hrs Laboratory Tests Test 06/10/16 20:38 06/11/16 02:38 06/11/16 04:42 06/11/16 08:15 Bedside Glucose 349 H 313 H 251 H White Blood Count 7.0 # Red Blood Count 4.50 Hemoglobin 14.3 Hematocrit 45.5 Mean Corpuscular Volume 101.1 H Mean Corpuscular Hemoglobin 31.8 Mean Corpuscular Hemoglobin Concent 31.4 L Red Cell Distribution Width 15.0 H Platelet Count 97 #L Mean Platelet Volume 11.4 H Neutrophils % 76.6 Lymphocytes % 15.1 Monocytes % 8.0 Eosinophils % 0.0 Basophils % 0.0 Nucleated Red Blood Cells % 0.0 Neutrophils # 5.3 Lymphocytes # 1.1 Monocytes # 0.6 Eosinophils # 0.0 Basophils # 0.0 Nucleated Red Blood Cells # 0.0 Sodium Level 135 Potassium Level 4.8 Chloride Level 96 L Carbon Dioxide Level 35 H Anion Gap 9 Blood Urea Nitrogen 27 #H Creatinine 0.56 Glucose Level 355 #H Calcium Level 8.6 Phosphorus Level 4.5 Magnesium Level 2.1 Triglycerides Level 134 Cholesterol Level 181 LDL Cholesterol, Calculated 111 HDL Cholesterol 43 Cholesterol/HDL Ratio 4.2 Test 06/11/16 12:24 06/11/16 17:17 Bedside Glucose 354 H 346 H Medications Medications Current Medications Lorazepam (Ativan) 0.25 mg Q8H PRN PO ANXIETY; Start 06/10/16 at 04:00 Ondansetron HCl (Zofran Tab) 4 mg Q6H PRN PO NAUSEA AND/OR VOMITING; Start at 04:00 Metoclopramide HCl (Reglan) 10 mg Q6H PRN IV NAUSEA AND/OR VOMITING; Start at 04:00 Nitroglycerin (Nitroglycerin (Sl Tab) 0.4 Mg) 1 tab Q5M PRN SL CHEST PAIN; Start 06/10/16 at 04:00 Acetaminophen (Tylenol Tab) 650 mg Q6H PRN PO PAIN LEVEL 1-3 OR FEVER Last administered on 06/10/16 08:25; Admin Dose 650 MG; Start 06/10/16 at 04:00 Famotidine (Pepcid) 20 mg Q12 PO Last administered on 06/11/16 09:22; Admin Dose 20 MG; Start 06/10/16 at 09:00 Enoxaparin Sodium (Lovenox) 40 mg DAILY SC Last administered on 06/11/16 09:29 ; Admin Dose 40 MG; Start 06/10/16 at 09:00 Diagnostic Test (Pha) (Accu-Chek) 1 ea 02 XX ; Start 06/11/16 at 02:00 Miscellaneous Information 1 ea NOTE XX ; Start 06/10/16 at 04:30 Glucose (Glutose) 15 gm Q15M PRN PO DECREASED GLUCOSE; Start 06/10/16 at 04:30 Glucose (Glutose) 22.5 gm Q15M PRN PO DECREASED GLUCOSE; Start 06/10/16 at 04: 30 Dextrose (D50w Syringe) 25 ml Q15M PRN IV DECREASED GLUCOSE; Start 06/10/16 at 04:30 Dextrose (D50w Syringe) 50 ml Q15M PRN IV DECREASED GLUCOSE; Start 06/10/16 at 04:30 Glucagon (Glucagen) 1 mg Q15M PRN IM DECREASED GLUCOSE; Start 06/10/16 at 04:30 Glucose (Glutose) 15 gm Q15M PRN BUCCAL DECREASED GLUCOSE; Start 06/10/16 at 04 :30 Oseltamivir Phosphate (Tamiflu) 75 mg BID PO Last administered on 06/11/16 09: 21; Admin Dose 75 MG; Start 06/10/16 at 11:00 Hydralazine HCl (Apresoline) 10 mg Q6H PRN IV SBP>160; Start 06/10/16 at 10:30 Enalapril Maleate (Vasotec) 2.5 mg DAILY PO Last administered on 06/11/16 09: 22; Admin Dose 2.5 MG; Start 06/10/16 at 12:00 Azithromycin (Zithromax) 500 mg DAILY PO Last administered on 06/11/16 09:22; Admin Dose 500 MG; Start 06/10/16 at 11:30 Insulin Human NPH (Humulin N) 10 unit BID SC Last administered on 06/11/16 09: 30; Admin Dose 10 UNIT; Start 06/10/16 at 21:00 Insulin Glargine (Lantus) 37 unit DAILY@20 SC Last administered on 06/10/16 21 :00; Admin Dose 37 UNIT; Start 06/10/16 at 20:00 Methylprednisolone Sodium Succinate (Solu-Medrol) 40 mg Q12 IV ; Start 06/11/16 at 21:00 LAURA CUMMINS MD Jun 11, 2016 17:43
[2016-06-11] MEDS: metFORMIN 500 MG TAB PO SCH (19:05)
[2016-06-11 20:47] LABS: H1N1 2009 FLU A RNA NOT DETECTED; H1N1 2009 SOURCE NASOPHARYNGEAL SWAB
[2016-06-11] MEDS: METHYLPREDNISOLONE 40 MG INJ IV SCH (21:08)
[2016-06-11] MEDS: INSULIN GLARGINE [LANtus] 3 ML PEN SC SCH (21:18)
[2016-06-11] MEDS ORDERED: INSULIN ASPART [NOVOLOG] 3 ML PEN SC ONE (22:00)
[2016-06-12] VITALS (11 sets, daily range): BP systolic 140–148; BP diastolic 63–79; PULSE 73–99; RESP 16–18
[2016-06-12] MEDS: ACCUCHECK AT 2AM (Patients on SS coverage) XX SCH (02:00)
[2016-06-12] MEDS: LEVOTHYROXINE 175 MCG TAB PO SCH (06:18)
[2016-06-12 06:55] LABS: ABNORMAL IP MESSAGE 1; ADD SCAN DIFF NO; HEMOGLOBIN 14.3 g/dl (12.0-16.0); LYMPHOCYTES # 0.9 10^3/ul (0.8-2.9); LYMPHOCYTES % 11.7 % (15.0-51.0); MEAN CORPUSCULAR HEMOGLOBIN 32.1 pg (29.0-33.0); MEAN CORPUSCULAR HGB CONC 31.8 g/dl (32.0-37.0); MEAN CORPUSCULAR VOLUME 101.1 fl (82.0-101.0); MEAN PLATELET VOLUME 11.4 fl (7.4-10.4); MONOCYTE # 0.6 10^3/ul (0.3-0.9); MONOCYTES % 8.2 % (0.0-11.0); NEUTROPHIL # 6.1 10^3/ul (1.6-7.5); NEUTROPHILS % 79.8 % (39.0-77.0); PLATELET COUNT 96 10^3/UL (140-415); RED BLOOD COUNT 4.45 10^6/ul (4.20-5.40); RED CELL DISTRIBUTION WIDTH 14.7 % (11.5-14.5); WHITE BLOOD COUNT 7.7 10^3/ul (4.8-10.8)
[2016-06-12 07:46] LABS: POTASSIUM 4.8 mmol/L (3.5-5.1)
[2016-06-12 07:49] LABS: CREATININE 0.56 mg/dl (0.44-1.00)
[2016-06-12 07:50] LABS: CALCIUM 8.9 mg/dl (8.4-10.2); MAGNESIUM 2.1 mg/dl (1.7-2.5); PHOSPHORUS 4.5 mg/dl (2.5-4.9)
[2016-06-12] MEDS: INSULIN ASPART [NOVOLOG] 3 ML PEN SC SCH ×7 (07:55→22:19)
[2016-06-12] MEDS: ALBUTEROL/IPRATROPIUM (NEB) 3 ML AMP NEB SCH ×4 (08:30→19:37)
[2016-06-12] MEDS: OSELTAMIVIR 75 MG CAP PO SCH ×2 (09:05→20:30)
[2016-06-12] MEDS: ENALAPRIL 2.5 MG TAB PO SCH (09:05)
[2016-06-12] MEDS: metFORMIN 500 MG TAB PO SCH ×2 (09:05→17:50)
[2016-06-12] MEDS: FAMOTIDINE 20 MG TAB PO SCH ×2 (09:05→20:30)
[2016-06-12] MEDS: AZITHROMYCIN 250 MG TAB PO SCH (09:05)
[2016-06-12] MEDS: METHYLPREDNISOLONE 40 MG INJ IV SCH (09:06)
[2016-06-12] MEDS: ENOXAPARIN 40 MG/0.4 ML SYG SC SCH (09:25)
[2016-06-12] MEDS: NPH, HUMAN INSULIN ISOPHANE 3ML VIAL SC SCH (09:25)
--- NOTE | 2016-06-12 09:40 | RADRPT ---
PROCEDURE: XR Chest 1 view. CLINICAL INDICATION: Shortness of breath TECHNIQUE: AP views of the chest were obtained. COMPARISON: June 09, 2016 FINDINGS: The heart is large. Calcified atherosclerosis is noted in the aorta. Elevation of the right hemidia phragm is unchanged. Associated atelectasis/consolidation of the right middle and lower lobes is st able. Retrocardiac opacity has developed. Mild central pulmonary vascular congestion and interstit ial prominence is seen in both lungs. The osseous structures are stable. IMPRESSION: Cardiomegaly with calcified atherosclerosis in the aorta. Central pulmonary vascular congestion and interstitial prominence in both lungs. Elevation of the right hemidiaphragm with associated atelectasis/consolidation of the right middle a nd lower lobes. Retrocardiac opacity that may reflect left lower lobe atelectasis or infiltrate combined with small pleural effusion. RPTAT: AA .Carson Disla MD, Date Time Electronically viewed and signed by .Carson Disla MD, on 06/12/2016 09:40 .P/
--- NOTE | 2016-06-12 10:32 | CONS ---
Date/Time of Note Date/Time of Note DATE: 06/12/16 TIME: 10:29 Assessment/Plan Assessment/Plan Additional Assessment/Plan Assessment recommendations; 1. Patient admitted with acute bronchitis and asthma exacerbation with significant clinical improvement. 2. Chest x-ray was again reviewed from today which is showing a pattern of interstitial lung disease. 3. Underlying morbid obesity, possibly underlying sleep apnea. 4. Hypertension. 5. Likely some element of diastolic dysfunction. Continue current treatment. Patient responding well to current treatment regimen. She will need to have a sleep study done on an outpatient basis. Consultation Date/Type/Reason Admit Date/Time Jun 10, 2016 at 03:58 Initial Consult Date 06/11/16 Type of Consultation: Pulmonary Referring Provider: HERMANN CEDILLO 24 HR Interval Summary Free Text/Dictation Patient condition is stable. Reporting decreased shortness of breath. Comes of a scant cough. Denies any sputum production. But does complain of mild chest congestion. Denies any wheezing, fever chills. Any chest pain. General exam; elderly lady, appears overweight, currently in no distress. Awake and alert. Exam/Review of Systems Vital Signs Vitals Vital Signs Date Time Temp Pulse Resp B/P Pulse Ox O2 Delivery O2 Flow Rate FiO2 06/12/16 08:31 76 20 96 Nasal Cannula 3.0 06/12/16 07:21 98.1 140/72 06/09/16 21:22 21 Intake and Output 06/11/16 06/11/16 06/12/16 15:00 23:00 07:00 Intake Total 800 ml 240 ml Balance 800 ml 240 ml Exam HEENT examination; supple neck, no JVD. No lymphadenopathy. Midline trachea. No thyromegaly. Pupils are equal and reactive to light bilaterally. No neck masses. Pharynx is clear. She has good dentition. Chest examination; diminished but clear breath sounds bilaterally. S1-S2 audible, no murmurs. Regular rhythm. Abdomen examination; protuberant, nontender. No organomegaly. Bowel sounds audible. Extremity exam; trace peripheral edema. Pulses 1+ bilaterally. No clubbing. [employer] examination; no focal deficit. Results Result Diagram: 06/12/16 0612 06/12/16 0612 Results 24 hrs Laboratory Tests Test 06/11/16 12:24 06/11/16 17:17 06/11/16 17:55 06/11/16 20:45 Bedside Glucose 354 H 346 H 367 H Hepatitis B Surface Antigen NEGATIVE Hepatitis C Antibody NEGATIVE Test 06/12/16 02:37 06/12/16 06:12 06/12/16 07:56 06/12/16 09:03 Bedside Glucose 313 H 230 H 274 H White Blood Count 7.7 Red Blood Count 4.45 Hemoglobin 14.3 Hematocrit 45.0 Mean Corpuscular Volume 101.1 H Mean Corpuscular Hemoglobin 32.1 Mean Corpuscular Hemoglobin Concent 31.8 L Red Cell Distribution Width 14.7 H Platelet Count 96 L Mean Platelet Volume 11.4 H Neutrophils % 79.8 H Lymphocytes % 11.7 L Monocytes % 8.2 Eosinophils % 0.0 Basophils % 0.0 Nucleated Red Blood Cells % 0.0 Neutrophils # 6.1 Lymphocytes # 0.9 Monocytes # 0.6 Eosinophils # 0.0 Basophils # 0.0 Nucleated Red Blood Cells # 0.0 Sodium Level 135 Potassium Level 4.8 Chloride Level 95 L Carbon Dioxide Level 35 H Anion Gap 10 Blood Urea Nitrogen 28 H Creatinine 0.56 Glucose Level 316 H Calcium Level 8.9 Phosphorus Level 4.5 Magnesium Level 2.1 Medications Medications Current Medications Lorazepam (Ativan) 0.25 mg Q8H PRN PO ANXIETY; Start 06/10/16 at 04:00 Ondansetron HCl (Zofran Tab) 4 mg Q6H PRN PO NAUSEA AND/OR VOMITING; Start at 04:00 Metoclopramide HCl (Reglan) 10 mg Q6H PRN IV NAUSEA AND/OR VOMITING; Start at 04:00 Nitroglycerin (Nitroglycerin (Sl Tab) 0.4 Mg) 1 tab Q5M PRN SL CHEST PAIN; Start 06/10/16 at 04:00 Acetaminophen (Tylenol Tab) 650 mg Q6H PRN PO PAIN LEVEL 1-3 OR FEVER Last administered on 06/10/16 08:25; Admin Dose 650 MG; Start 06/10/16 at 04:00 Famotidine (Pepcid) 20 mg Q12 PO Last administered on 06/12/16 09:05; Admin Dose 20 MG; Start 06/10/16 at 09:00 Enoxaparin Sodium (Lovenox) 40 mg DAILY SC Last administered on 06/12/16 09:25 ; Admin Dose 40 MG; Start 06/10/16 at 09:00 Diagnostic Test (Pha) (Accu-Chek) 1 ea 02 XX Last administered on 06/12/16 02: 00; Admin Dose 1 EA; Start 06/11/16 at 02:00 Miscellaneous Information 1 ea NOTE XX ; Start 06/10/16 at 04:30 Glucose (Glutose) 15 gm Q15M PRN PO DECREASED GLUCOSE; Start 06/10/16 at 04:30 Glucose (Glutose) 22.5 gm Q15M PRN PO DECREASED GLUCOSE; Start 06/10/16 at 04: 30 Dextrose (D50w Syringe) 25 ml Q15M PRN IV DECREASED GLUCOSE; Start 06/10/16 at 04:30 Dextrose (D50w Syringe) 50 ml Q15M PRN IV DECREASED GLUCOSE; Start 06/10/16 at 04:30 Glucagon (Glucagen) 1 mg Q15M PRN IM DECREASED GLUCOSE; Start 06/10/16 at 04:30 Glucose (Glutose) 15 gm Q15M PRN BUCCAL DECREASED GLUCOSE; Start 06/10/16 at 04 :30 Oseltamivir Phosphate (Tamiflu) 75 mg BID PO Last administered on 06/12/16 09: 05; Admin Dose 75 MG; Start 06/10/16 at 11:00 Hydralazine HCl (Apresoline) 10 mg Q6H PRN IV SBP>160; Start 06/10/16 at 10:30 Enalapril Maleate (Vasotec) 2.5 mg DAILY PO Last administered on 06/12/16 09: 05; Admin Dose 2.5 MG; Start 06/10/16 at 12:00 Azithromycin (Zithromax) 500 mg DAILY PO Last administered on 06/12/16 09:05; Admin Dose 500 MG; Start 06/10/16 at 11:30 Insulin Glargine (Lantus) 37 unit DAILY@20 SC Last administered on 06/11/16 21 :18; Admin Dose 37 UNIT; Start 06/10/16 at 20:00 Methylprednisolone Sodium Succinate (Solu-Medrol) 40 mg Q12 IV Last administered on 06/12/16 09:06; Admin Dose 40 MG; Start 06/11/16 at 21:00 Insulin Human NPH (Humulin N) 15 unit Q12 SC Last administered on 06/12/16 09: 25; Admin Dose 15 UNIT; Start 06/11/16 at 21:00 Levothyroxine Sodium (Synthroid) 175 mcg DAILY@06 PO Last administered on 06:18; Admin Dose 175 MCG; Start 06/12/16 at 06:00 Furosemide (Lasix) 40 mg DAILY IV ; Start 06/12/16 at 10:30; Status PAOLA HENDRIX Jun 12, 2016 10:32
[2016-06-12] MEDS: FUROSEMIDE 40 MG INJ IV SCH (12:11)
--- NOTE | 2016-06-12 14:39 | PN ---
Date/Time of Note Date/Time of Note DATE: 06/12/16 TIME: 14:37 Assessment/Plan VTE Prophylaxis VTE Prophylaxis Intervention: LMWH Lines/Catheters IV Catheter Type (from [facility]): [facility]ine [facility] Assessment/Plan Chief Complaint/Hosp Course Assessment and plan 1. Asthma exacerbation with acute bronchitis. Continue with bronchodilators. Continue on steroid treatment. Director Financial Planning following. On antibiotics. 2. Influenza A positive. Continue on Tamiflu 3. Morbid obesity. Weight reduction advised 4. Type 2 diabetes. Continue on insulin regimen. DVT prophylaxis: Lovenox Disposition and plan: Appears to be improving at this time. Continue on diuretic and bronchodilators. Discharge when cleared by consultants Discussed plan of care with Dr. Diego Problems: Subjective 24 Hr Interval Summary Free Text/Dictation Less wheezing auscultated today. Still reports having some shortness of breath Exam/Review of Systems Vital Signs Vitals Vital Signs Date Time Temp Pulse Resp B/P Pulse Ox O2 Delivery O2 Flow Rate FiO2 06/12/16 13:11 88 20 94 Nasal Cannula 1.0 24 06/12/16 10:57 98.2 142/71 Intake and Output 06/11/16 06/11/16 06/12/16 15:00 23:00 07:00 Intake Total 800 ml 240 ml Balance 800 ml 240 ml Exam General: No acute signs or symptoms of distress, morbidly obese Eyes: pupils equal round, Anicteric sclera Neck: Supple nontender, no JVD Cardiac: S1, S2 auscultated, regular rhythm and rate Pulmonary: Less wheezing auscultated today. Still diminished at lung bases. GI: Abdomen soft nontender nondistended, bowel sounds active Extremities: no appreciable edema noted bilateral lower extremities Skin: Clean dry and intact Neurologic: Alert to person place and time and situation Results Result Diagram: 06/12/16 0612 06/12/16 0612 Results 24 hrs Laboratory Tests Test 06/11/16 17:17 06/11/16 17:55 06/11/16 20:45 06/12/16 02:37 Bedside Glucose 346 H 367 H 313 H Hepatitis B Surface Antigen NEGATIVE Hepatitis C Antibody NEGATIVE Test 06/12/16 06:12 06/12/16 07:56 06/12/16 09:03 06/12/16 12:10 White Blood Count 7.7 Red Blood Count 4.45 Hemoglobin 14.3 Hematocrit 45.0 Mean Corpuscular Volume 101.1 H Mean Corpuscular Hemoglobin 32.1 Mean Corpuscular Hemoglobin Concent 31.8 L Red Cell Distribution Width 14.7 H Platelet Count 96 L Mean Platelet Volume 11.4 H Neutrophils % 79.8 H Lymphocytes % 11.7 L Monocytes % 8.2 Eosinophils % 0.0 Basophils % 0.0 Nucleated Red Blood Cells % 0.0 Neutrophils # 6.1 Lymphocytes # 0.9 Monocytes # 0.6 Eosinophils # 0.0 Basophils # 0.0 Nucleated Red Blood Cells # 0.0 Sodium Level 135 Potassium Level 4.8 Chloride Level 95 L Carbon Dioxide Level 35 H Anion Gap 10 Blood Urea Nitrogen 28 H Creatinine 0.56 Glucose Level 316 H Calcium Level 8.9 Phosphorus Level 4.5 Magnesium Level 2.1 Bedside Glucose 230 H 274 H 259 H Medications Medications Current Medications Lorazepam (Ativan) 0.25 mg Q8H PRN PO ANXIETY; Start 06/10/16 at 04:00 Ondansetron HCl (Zofran Tab) 4 mg Q6H PRN PO NAUSEA AND/OR VOMITING; Start at 04:00 Metoclopramide HCl (Reglan) 10 mg Q6H PRN IV NAUSEA AND/OR VOMITING; Start at 04:00 Nitroglycerin (Nitroglycerin (Sl Tab) 0.4 Mg) 1 tab Q5M PRN SL CHEST PAIN; Start 06/10/16 at 04:00 Acetaminophen (Tylenol Tab) 650 mg Q6H PRN PO PAIN LEVEL 1-3 OR FEVER Last administered on 06/10/16 08:25; Admin Dose 650 MG; Start 06/10/16 at 04:00 Famotidine (Pepcid) 20 mg Q12 PO Last administered on 06/12/16 09:05; Admin Dose 20 MG; Start 06/10/16 at 09:00 Enoxaparin Sodium (Lovenox) 40 mg DAILY SC Last administered on 06/12/16 09:25 ; Admin Dose 40 MG; Start 06/10/16 at 09:00 Diagnostic Test (Pha) (Accu-Chek) 1 ea 02 XX Last administered on 06/12/16 02: 00; Admin Dose 1 EA; Start 06/11/16 at 02:00 Miscellaneous Information 1 ea NOTE XX ; Start 06/10/16 at 04:30 Glucose (Glutose) 15 gm Q15M PRN PO DECREASED GLUCOSE; Start 06/10/16 at 04:30 Glucose (Glutose) 22.5 gm Q15M PRN PO DECREASED GLUCOSE; Start 06/10/16 at 04: 30 Dextrose (D50w Syringe) 25 ml Q15M PRN IV DECREASED GLUCOSE; Start 06/10/16 at 04:30 Dextrose (D50w Syringe) 50 ml Q15M PRN IV DECREASED GLUCOSE; Start 06/10/16 at 04:30 Glucagon (Glucagen) 1 mg Q15M PRN IM DECREASED GLUCOSE; Start 06/10/16 at 04:30 Glucose (Glutose) 15 gm Q15M PRN BUCCAL DECREASED GLUCOSE; Start 06/10/16 at 04 :30 Oseltamivir Phosphate (Tamiflu) 75 mg BID PO Last administered on 06/12/16 09: 05; Admin Dose 75 MG; Start 06/10/16 at 11:00 Hydralazine HCl (Apresoline) 10 mg Q6H PRN IV SBP>160; Start 06/10/16 at 10:30 Enalapril Maleate (Vasotec) 2.5 mg DAILY PO Last administered on 06/12/16 09: 05; Admin Dose 2.5 MG; Start 06/10/16 at 12:00 Azithromycin (Zithromax) 500 mg DAILY PO Last administered on 06/12/16 09:05; Admin Dose 500 MG; Start 06/10/16 at 11:30 Insulin Glargine (Lantus) 37 unit DAILY@20 SC Last administered on 06/11/16 21 :18; Admin Dose 37 UNIT; Start 06/10/16 at 20:00 Methylprednisolone Sodium Succinate (Solu-Medrol) 40 mg Q12 IV Last administered on 06/12/16 09:06; Admin Dose 40 MG; Start 06/11/16 at 21:00 Insulin Human NPH (Humulin N) 15 unit Q12 SC Last administered on 06/12/16 09: 25; Admin Dose 15 UNIT; Start 06/11/16 at 21:00 Levothyroxine Sodium (Synthroid) 175 mcg DAILY@06 PO Last administered on 06:18; Admin Dose 175 MCG; Start 06/12/16 at 06:00 Furosemide (Lasix) 40 mg DAILY IV Last administered on 06/12/16t 12:11; Admin Dose 40 MG; Start 06/12/16 at 10:30 YANA NGUYEN Jun 12, 2016 14:39
--- NOTE | 2016-06-12 18:52 | CONS ---
Date/Time of Note Date/Time of Note DATE: 06/12/16 TIME: 18:49 Assessment/Plan Assessment/Plan Chief Complaint/Hosp Course Pleasant 65-year-old female who reports that she does not have diabetes at home. She reports that she is unaware of this diagnosis although our admission labs demonstrated an outpatient A1c in excess of 9. She is admitted due to influenza A driven asthma exacerbation with near respiratory failure. She is on IV Solu-Medrol to help with the respiratory issues which is driving up her sugars. Again she has not been on any diabetic medications in the home environment. Problems: (1) Diabetes mellitus type 2 in obese Status: Chronic Comment: Her sugars are still elevated but she has been receiving steroids. However breathing is come under control quite nicely. She actually at this time is now able to give a much more cogent detailed history and reports she was on Januvia at home metformin at home and 4 shots a day of insulin. I will adjust her regimen and take her off of the intravenous steroids and let her balance out (2) Asthma exacerbation Status: Acute Comment: Place her back on routine asthma medications which by the way she reports she was taking before she came in with the acute influenza pneumonia (3) Influenza, pneumonia Status: Acute Comment: Responding nicely to medication (4) Morbid obesity due to excess calories Status: Chronic Comment: Calorie restriction (5) Hx of papillary thyroid carcinoma Onset Date: ~ 05/2001 Status: Chronic Comment: She was not adequately suppressed on the dosage of levothyroxine she was on I have adjusted Consultation Date/Type/Reason Admit Date/Time Jun 10, 2016 at 03:58 Initial Consult Date 06/11/16 Type of Consultation: Pulmonary Referring Provider: HERMANN CEDILLO 24 HR Interval Summary Constitutional: improved Detailed Summary Respiratory: shortness of breath, wheezing (Much improved markedly improved) Cardiovascular: no complaints Gastrointestinal: no complaints Genitourinary: no complaints Exam/Review of Systems Vital Signs Vitals Vital Signs Date Time Temp Pulse Resp B/P Pulse Ox O2 Delivery O2 Flow Rate FiO2 06/12/16 16:08 88 22 99 Nasal Cannula 3.0 32 06/12/16 15:14 98.1 141/63 Intake and Output 06/11/16 06/11/16 06/12/16 15:00 23:00 07:00 Intake Total 800 ml 240 ml Balance 800 ml 240 ml Exam Morbidly obese woman who is much more comfortable the wheezing less and coughing less Constitutional: alert, oriented Neck: non-tender, supple Respiratory: wheezing (Scant wheezing present) Cardiovascular: nl pulses, regular rate and rhythm Results Result Diagram: 06/12/16 0612 06/12/16 0612 Results 24 hrs Laboratory Tests Test 06/11/16 20:45 06/12/16 02:37 06/12/16 06:12 06/12/16 07:56 Bedside Glucose 367 H 313 H 230 H White Blood Count 7.7 Red Blood Count 4.45 Hemoglobin 14.3 Hematocrit 45.0 Mean Corpuscular Volume 101.1 H Mean Corpuscular Hemoglobin 32.1 Mean Corpuscular Hemoglobin Concent 31.8 L Red Cell Distribution Width 14.7 H Platelet Count 96 L Mean Platelet Volume 11.4 H Neutrophils % 79.8 H Lymphocytes % 11.7 L Monocytes % 8.2 Eosinophils % 0.0 Basophils % 0.0 Nucleated Red Blood Cells % 0.0 Neutrophils # 6.1 Lymphocytes # 0.9 Monocytes # 0.6 Eosinophils # 0.0 Basophils # 0.0 Nucleated Red Blood Cells # 0.0 Sodium Level 135 Potassium Level 4.8 Chloride Level 95 L Carbon Dioxide Level 35 H Anion Gap 10 Blood Urea Nitrogen 28 H Creatinine 0.56 Glucose Level 316 H Calcium Level 8.9 Phosphorus Level 4.5 Magnesium Level 2.1 Test 06/12/16 09:03 06/12/16 12:10 Bedside Glucose 274 H 259 H Medications Medications Current Medications Lorazepam (Ativan) 0.25 mg Q8H PRN PO ANXIETY; Start 06/10/16 at 04:00 Ondansetron HCl (Zofran Tab) 4 mg Q6H PRN PO NAUSEA AND/OR VOMITING; Start at 04:00 Metoclopramide HCl (Reglan) 10 mg Q6H PRN IV NAUSEA AND/OR VOMITING; Start at 04:00 Nitroglycerin (Nitroglycerin (Sl Tab) 0.4 Mg) 1 tab Q5M PRN SL CHEST PAIN; Start 06/10/16 at 04:00 Acetaminophen (Tylenol Tab) 650 mg Q6H PRN PO PAIN LEVEL 1-3 OR FEVER Last administered on 06/10/16t 08:25; Admin Dose 650 MG; Start 06/10/16 at 04:00 Famotidine (Pepcid) 20 mg Q12 PO Last administered on 06/12/16 09:05; Admin Dose 20 MG; Start 06/10/16 at 09:00 Enoxaparin Sodium (Lovenox) 40 mg DAILY SC Last administered on 06/12/16 09:25 ; Admin Dose 40 MG; Start 06/10/16 at 09:00 Diagnostic Test (Pha) (Accu-Chek) 1 ea 02 XX Last administered on 06/12/16 02: 00; Admin Dose 1 EA; Start 06/11/16 at 02:00 Miscellaneous Information 1 ea NOTE XX ; Start 06/10/16 at 04:30 Glucose (Glutose) 15 gm Q15M PRN PO DECREASED GLUCOSE; Start 06/10/16 at 04:30 Glucose (Glutose) 22.5 gm Q15M PRN PO DECREASED GLUCOSE; Start 06/10/16 at 04: 30 Dextrose (D50w Syringe) 25 ml Q15M PRN IV DECREASED GLUCOSE; Start 06/10/16 at 04:30 Dextrose (D50w Syringe) 50 ml Q15M PRN IV DECREASED GLUCOSE; Start 06/10/16 at 04:30 Glucagon (Glucagen) 1 mg Q15M PRN IM DECREASED GLUCOSE; Start 06/10/16 at 04:30 Glucose (Glutose) 15 gm Q15M PRN BUCCAL DECREASED GLUCOSE; Start 06/10/16 at 04 :30 Oseltamivir Phosphate (Tamiflu) 75 mg BID PO Last administered on 06/12/16 09: 05; Admin Dose 75 MG; Start 06/10/16 at 11:00 Hydralazine HCl (Apresoline) 10 mg Q6H PRN IV SBP>160; Start 06/10/16 at 10:30 Enalapril Maleate (Vasotec) 2.5 mg DAILY PO Last administered on 06/12/16 09: 05; Admin Dose 2.5 MG; Start 06/10/16 at 12:00 Azithromycin (Zithromax) 500 mg DAILY PO Last administered on 06/12/16 09:05; Admin Dose 500 MG; Start 06/10/16 at 11:30 Insulin Glargine (Lantus) 37 unit DAILY@20 SC Last administered on 06/11/16 21 :18; Admin Dose 37 UNIT; Start 06/10/16 at 20:00 Methylprednisolone Sodium Succinate (Solu-Medrol) 40 mg Q12 IV Last administered on 06/12/16 09:06; Admin Dose 40 MG; Start 06/11/16 at 21:00 Insulin Human NPH (Humulin N) 15 unit Q12 SC Last administered on 06/12/16 09: 25; Admin Dose 15 UNIT; Start 06/11/16 at 21:00 Levothyroxine Sodium (Synthroid) 175 mcg DAILY@06 PO Last administered on 06:18; Admin Dose 175 MCG; Start 06/12/16 at 06:00 Furosemide (Lasix) 40 mg DAILY IV Last administered on 06/12/16 12:11; Admin Dose 40 MG; Start 06/12/16 at 10:30 LAURA CUMMINS MD Jun 12, 2016 18:52
[2016-06-12] MEDS ORDERED: INSULIN GLARGINE [LANtus] 3 ML PEN SC SCH (20:00)
[2016-06-12] MEDS: LINAGLIPTIN 5 MG TABLET PO SCH (20:29)
[2016-06-12] MEDS: MONTELUKAST 10 MG TAB PO SCH (20:30)
[2016-06-12] MEDS: SALMETEROL/FLUTICASONE 250/50 INHA INH SCH (20:30)
[2016-06-12] MEDS: ACETAMINOPHEN 325 MG TAB PO PRN (20:31)
[2016-06-12] MEDS ORDERED: INSULIN ASPART [NOVOLOG] 3 ML PEN SC ONE (22:30)
[2016-06-13] VITALS (13 sets, daily range): BP systolic 126–139; BP diastolic 58–81; PULSE 71–104; RESP 16–19
[2016-06-13] MEDS: ACCUCHECK AT 2AM (Patients on SS coverage) XX SCH (02:40)
[2016-06-13 06:47] LABS: ADD SCAN DIFF NO
[2016-06-13] MEDS: LEVOTHYROXINE 175 MCG TAB PO SCH (06:51)
[2016-06-13 06:57] LABS: ABNORMAL IP MESSAGE 1; BASOPHILS % 0.1 % (0.0-2.0); HEMATOCRIT 43.8 % (37.0-47.0); HEMOGLOBIN 14.2 g/dl (12.0-16.0); LYMPHOCYTES # 1.8 10^3/ul (0.8-2.9); LYMPHOCYTES % 23.9 % (15.0-51.0); MEAN CORPUSCULAR HEMOGLOBIN 32.3 pg (29.0-33.0); MEAN CORPUSCULAR HGB CONC 32.4 g/dl (32.0-37.0); MEAN CORPUSCULAR VOLUME 99.8 fl (82.0-101.0); MEAN PLATELET VOLUME 11.1 fl (7.4-10.4); MONOCYTES % 13.4 % (0.0-11.0); NEUTROPHIL # 4.8 10^3/ul (1.6-7.5); NEUTROPHILS % 62.3 % (39.0-77.0); PLATELET COUNT 92 10^3/UL (140-415); RED BLOOD COUNT 4.39 10^6/ul (4.20-5.40); RED CELL DISTRIBUTION WIDTH 14.6 % (11.5-14.5); WHITE BLOOD COUNT 7.7 10^3/ul (4.8-10.8)
[2016-06-13 07:09] LABS: POTASSIUM 4.1 mmol/L (3.5-5.1)
[2016-06-13 07:11] LABS: CREATININE 0.57 mg/dl (0.44-1.00)
[2016-06-13 07:12] LABS: CALCIUM 8.8 mg/dl (8.4-10.2)
[2016-06-13] MEDS: INSULIN ASPART [NOVOLOG] 3 ML PEN SC SCH ×7 (07:55→20:53)
[2016-06-13] MEDS: ALBUTEROL/IPRATROPIUM (NEB) 3 ML AMP NEB SCH ×4 (08:13→20:00)
[2016-06-13] MEDS: metFORMIN 500 MG TAB PO SCH ×2 (09:05→17:54)
[2016-06-13] MEDS: AZITHROMYCIN 250 MG TAB PO SCH (09:05)
[2016-06-13] MEDS: FAMOTIDINE 20 MG TAB PO SCH ×2 (09:05→20:43)
[2016-06-13] MEDS: ENALAPRIL 2.5 MG TAB PO SCH (09:05)
[2016-06-13] MEDS: LINAGLIPTIN 5 MG TABLET PO SCH (09:05)
[2016-06-13] MEDS: FUROSEMIDE 40 MG INJ IV SCH (09:06)
[2016-06-13] MEDS: SALMETEROL/FLUTICASONE 250/50 INHA INH SCH ×2 (09:06→20:43)
[2016-06-13] MEDS: OSELTAMIVIR 75 MG CAP PO SCH ×2 (09:06→20:43)
[2016-06-13] MEDS: ENOXAPARIN 40 MG/0.4 ML SYG SC SCH (09:26)
--- NOTE | 2016-06-13 11:16 | CONS ---
Date/Time of Note Date/Time of Note DATE: 06/13/16 TIME: 11:14 Assessment/Plan Assessment/Plan Additional Assessment/Plan Assessment and recommendations; 1. Patient admitted for asthma exacerbation with acute bronchitis with clinical improvement. 2. Other comorbidities including hypothyroidism, hypertension, diabetes all appear fairly stable. Continue current treatment. Continue Solu-Medrol at current dosing. Switch the patient to prednisone tomorrow morning. Consultation Date/Type/Reason Admit Date/Time Jun 10, 2016 at 03:58 Initial Consult Date 06/11/16 Type of Consultation: Pulmonary Referring Provider: HERMANN CEDILLO 24 HR Interval Summary Free Text/Dictation Patient condition is stable. Is awake and alert. Patient is reporting that shortness of breath is gradually improving. Complains of scant cough. Denies any wheezing. General exam; elderly lady, currently in no distress. Awake and alert. Exam/Review of Systems Vital Signs Vitals Vital Signs Date Time Temp Pulse Resp B/P Pulse Ox O2 Delivery O2 Flow Rate FiO2 06/13/16 10:51 97.9 78 18 128/64 92 06/13/16 08:13 Nasal Cannula 3.0 06/12/16 16:08 32 Intake and Output 06/12/16 06/12/16 06/13/16 15:00 23:00 07:00 Intake Total 810 ml 650 ml Balance 810 ml 650 ml Exam HEENT examination; supple neck, no JVD. No lymphadenopathy. Midline trachea. No thyromegaly. Pharynx is clear. The left intraocular lens implant. Dentition is fair. Chest examination; diminished but clear breath sounds bilaterally. No added sounds. S1-S2 audible, no murmurs. Regular rhythm. Abdomen examination; soft, no organomegaly. Bowel sounds audible. Extremity examination; no peripheral edema. Pulses 1+ bilaterally. There is no clubbing. FINANCIAL SERVICES ASSISTANT examination; no focal deficit. Results Result Diagram: 06/13/16 0618 06/13/16 0618 Results 24 hrs Laboratory Tests Test 06/12/16 12:10 06/12/16 20:28 06/12/16 22:11 06/13/16 02:34 Bedside Glucose 259 H 314 H 308 H 111 Test 06/13/16 06:18 06/13/16 08:13 06/13/16 09:01 White Blood Count 7.7 Red Blood Count 4.39 Hemoglobin 14.2 Hematocrit 43.8 Mean Corpuscular Volume 99.8 Mean Corpuscular Hemoglobin 32.3 Mean Corpuscular Hemoglobin Concent 32.4 Red Cell Distribution Width 14.6 H Platelet Count 92 L Mean Platelet Volume 11.1 H Neutrophils % 62.3 Lymphocytes % 23.9 Monocytes % 13.4 H Eosinophils % 0.0 Basophils % 0.1 Nucleated Red Blood Cells % 0.0 Neutrophils # 4.8 Lymphocytes # 1.8 Monocytes # 1.0 H Eosinophils # 0.0 Basophils # 0.0 Nucleated Red Blood Cells # 0.0 Sodium Level 138 Potassium Level 4.1 Chloride Level 96 L Carbon Dioxide Level 37 H Anion Gap 9 Blood Urea Nitrogen 24 H Creatinine 0.57 Glucose Level 90 # Calcium Level 8.8 Bedside Glucose 65 L 161 Medications Medications Current Medications Lorazepam (Ativan) 0.25 mg Q8H PRN PO ANXIETY; Start 06/10/16 at 04:00 Ondansetron HCl (Zofran Tab) 4 mg Q6H PRN PO NAUSEA AND/OR VOMITING; Start at 04:00 Metoclopramide HCl (Reglan) 10 mg Q6H PRN IV NAUSEA AND/OR VOMITING; Start at 04:00 Nitroglycerin (Nitroglycerin (Sl Tab) 0.4 Mg) 1 tab Q5M PRN SL CHEST PAIN; Start 06/10/16 at 04:00 Acetaminophen (Tylenol Tab) 650 mg Q6H PRN PO PAIN LEVEL 1-3 OR FEVER Last administered on 06/12/16 20:31; Admin Dose 650 MG; Start 06/10/16 at 04:00 Famotidine (Pepcid) 20 mg Q12 PO Last administered on 06/13/16 09:05; Admin Dose 20 MG; Start 06/10/16 at 09:00 Enoxaparin Sodium (Lovenox) 40 mg DAILY SC Last administered on 06/13/16 09:26 ; Admin Dose 40 MG; Start 06/10/16 at 09:00 Diagnostic Test (Pha) (Accu-Chek) 1 ea 02 XX Last administered on 06/13/16 02: 40; Admin Dose 1 EA; Start 06/11/16 at 02:00 Miscellaneous Information 1 ea NOTE XX ; Start 06/10/16 at 04:30 Glucose (Glutose) 15 gm Q15M PRN PO DECREASED GLUCOSE; Start 06/10/16 at 04:30 Glucose (Glutose) 22.5 gm Q15M PRN PO DECREASED GLUCOSE; Start 06/10/16 at 04: 30 Dextrose (D50w Syringe) 25 ml Q15M PRN IV DECREASED GLUCOSE; Start 06/10/16 at 04:30 Dextrose (D50w Syringe) 50 ml Q15M PRN IV DECREASED GLUCOSE; Start 06/10/16 at 04:30 Glucagon (Glucagen) 1 mg Q15M PRN IM DECREASED GLUCOSE; Start 06/10/16 at 04:30 Glucose (Glutose) 15 gm Q15M PRN BUCCAL DECREASED GLUCOSE; Start 06/10/16 at 04 :30 Oseltamivir Phosphate (Tamiflu) 75 mg BID PO Last administered on 06/13/16 09: 06; Admin Dose 75 MG; Start 06/10/16 at 11:00 Hydralazine HCl (Apresoline) 10 mg Q6H PRN IV SBP>160; Start 06/10/16 at 10:30 Enalapril Maleate (Vasotec) 2.5 mg DAILY PO Last administered on 06/13/16 09: 05; Admin Dose 2.5 MG; Start 06/10/16 at 12:00 Azithromycin (Zithromax) 500 mg DAILY PO Last administered on 06/13/16 09:05; Admin Dose 500 MG; Start 06/10/16 at 11:30 Levothyroxine Sodium (Synthroid) 175 mcg DAILY@06 PO Last administered on 06:51; Admin Dose 175 MCG; Start 06/12/16 at 06:00 Furosemide (Lasix) 40 mg DAILY IV Last administered on 06/13/16 09:06; Admin Dose 40 MG; Start 06/12/16 at 10:30 Insulin Glargine (Lantus) 45 unit DAILY@20 SC Last administered on 06/12/16 20 :45; Admin Dose 45 UNIT; Start 06/12/16 at 20:00 Linagliptin (Tradjenta) 5 mg DAILY PO Last administered on 06/13/16 09:05; Admin Dose 5 MG; Start 06/12/16 at 19:00 Salmeterol Xinafoate/ Fluticasone (Advair 250/50 Diskus) 1 inh BID INH Last administered on 06/13/16 09:06; Admin Dose 1 INH; Start 06/12/16 at 21:00 Montelukast Sodium (Singulair) 10 mg HS PO Last administered on 06/12/16 20:30 ; Admin Dose 10 MG; Start 06/12/16 at 21:00 PAOLA JIMENES Jun 13, 2016 11:15
--- NOTE | 2016-06-13 13:11 | CONS ---
Date/Time of Note Date/Time of Note DATE: 06/13/16 TIME: 13:09 Assessment/Plan Assessment/Plan Chief Complaint/Hosp Course Pleasant 65-year-old female who reports that she does not have diabetes at home. She reports that she is unaware of this diagnosis although our admission labs demonstrated an outpatient A1c in excess of 9. She is admitted due to influenza A driven asthma exacerbation with near respiratory failure. She is on IV Solu-Medrol to help with the respiratory issues which is driving up her sugars. Again she has not been on any diabetic medications in the home environment. Problems: (1) Diabetes mellitus type 2 in obese Status: Chronic Comment: With the discontinuation of the steroids her sugars are coming under control quite nicely. We will make some fine-tuning adjustments but she is doing well from this standpoint. Ultimately decision about when to discharge will be based on pulmonary. (2) Morbid obesity due to excess calories Status: Chronic Comment: Calorie restriction diet patient has been counseled (3) Hx of papillary thyroid carcinoma Onset Date: ~ 05/2001 Status: Chronic Comment: She should continue on levothyroxine at suppression therapy with a TSH suppressed down just below lower limits of normal and followed up as an outpatient (4) Asthma exacerbation Status: Acute Comment: As per pulmonary (5) Influenza A Status: Acute Comment: On appropriate medical therapy Consultation Date/Type/Reason Admit Date/Time Jun 10, 2016 at 03:58 Initial Consult Date 06/11/16 Type of Consultation: Endocrinology Reason for Consultation Diabetes mellitus type 2 with sugars out of control Referring Provider: HERMANN CEDILLO 24 HR Interval Summary Constitutional: no complaints Detailed Summary Respiratory: no complaints Cardiovascular: no complaints Gastrointestinal: no complaints Exam/Review of Systems Vital Signs Vitals Vital Signs Date Time Temp Pulse Resp B/P Pulse Ox O2 Delivery O2 Flow Rate FiO2 06/13/16 12:16 97 2.0 06/13/16 12:16 100 20 Nasal Cannula 06/13/16 10:51 97.9 128/64 06/12/16 16:08 32 Intake and Output 06/12/16 06/12/16 06/13/16 15:00 23:00 07:00 Intake Total 810 ml 650 ml Balance 810 ml 650 ml Exam Constitutional: alert, oriented Respiratory: wheezing Cardiovascular: nl pulses, regular rate and rhythm Results Result Diagram: 06/13/1661706/13/16617 Results 24 hrs Laboratory Tests Test 06/12/16 20:28 06/12/16 22:11 06/13/16 02:34 06/13/16 06:18 Bedside Glucose 314 H 308 H 111 White Blood Count 7.7 Red Blood Count 4.39 Hemoglobin 14.2 Hematocrit 43.8 Mean Corpuscular Volume 99.8 Mean Corpuscular Hemoglobin 32.3 Mean Corpuscular Hemoglobin Concent 32.4 Red Cell Distribution Width 14.6 H Platelet Count 92 L Mean Platelet Volume 11.1 H Neutrophils % 62.3 Lymphocytes % 23.9 Monocytes % 13.4 H Eosinophils % 0.0 Basophils % 0.1 Nucleated Red Blood Cells % 0.0 Neutrophils # 4.8 Lymphocytes # 1.8 Monocytes # 1.0 H Eosinophils # 0.0 Basophils # 0.0 Nucleated Red Blood Cells # 0.0 Sodium Level 138 Potassium Level 4.1 Chloride Level 96 L Carbon Dioxide Level 37 H Anion Gap 9 Blood Urea Nitrogen 24 H Creatinine 0.57 Glucose Level 90 # Calcium Level 8.8 Test 06/13/16 08:13 06/13/16 09:01 06/13/16 12:10 06/13/16 13:04 Bedside Glucose 65 L 161 164 179 Medications Medications Current Medications Lorazepam (Ativan) 0.25 mg Q8H PRN PO ANXIETY; Start 06/10/16 at 04:00 Ondansetron HCl (Zofran Tab) 4 mg Q6H PRN PO NAUSEA AND/OR VOMITING; Start at 04:00 Metoclopramide HCl (Reglan) 10 mg Q6H PRN IV NAUSEA AND/OR VOMITING; Start at 04:00 Nitroglycerin (Nitroglycerin (Sl Tab) 0.4 Mg) 1 tab Q5M PRN SL CHEST PAIN; Start 06/10/16 at 04:00 Acetaminophen (Tylenol Tab) 650 mg Q6H PRN PO PAIN LEVEL 1-3 OR FEVER Last administered on 06/12/16 20:31; Admin Dose 650 MG; Start 06/10/16 at 04:00 Famotidine (Pepcid) 20 mg Q12 PO Last administered on 06/13/16 09:05; Admin Dose 20 MG; Start 06/10/16 at 09:00 Enoxaparin Sodium (Lovenox) 40 mg DAILY SC Last administered on 06/13/16 09:26 ; Admin Dose 40 MG; Start 06/10/16 at 09:00 Diagnostic Test (Pha) (Accu-Chek) 1 ea 02 XX Last administered on 06/13/16 02: 40; Admin Dose 1 EA; Start 06/11/16 at 02:00 Miscellaneous Information 1 ea NOTE XX ; Start 06/10/16 at 04:30 Glucose (Glutose) 15 gm Q15M PRN PO DECREASED GLUCOSE; Start 06/10/16 at 04:30 Glucose (Glutose) 22.5 gm Q15M PRN PO DECREASED GLUCOSE; Start 06/10/16 at 04: 30 Dextrose (D50w Syringe) 25 ml Q15M PRN IV DECREASED GLUCOSE; Start 06/10/16 at 04:30 Dextrose (D50w Syringe) 50 ml Q15M PRN IV DECREASED GLUCOSE; Start 06/10/16 at 04:30 Glucagon (Glucagen) 1 mg Q15M PRN IM DECREASED GLUCOSE; Start 06/10/16 at 04:30 Glucose (Glutose) 15 gm Q15M PRN BUCCAL DECREASED GLUCOSE; Start 06/10/16 at 04 :30 Oseltamivir Phosphate (Tamiflu) 75 mg BID PO Last administered on 06/13/16 09: 06; Admin Dose 75 MG; Start 06/10/16 at 11:00 Hydralazine HCl (Apresoline) 10 mg Q6H PRN IV SBP>160; Start 06/10/16 at 10:30 Enalapril Maleate (Vasotec) 2.5 mg DAILY PO Last administered on 06/13/16 09: 05; Admin Dose 2.5 MG; Start 06/10/16 at 12:00 Azithromycin (Zithromax) 500 mg DAILY PO Last administered on 06/13/16 09:05; Admin Dose 500 MG; Start 06/10/16 at 11:30 Levothyroxine Sodium (Synthroid) 175 mcg DAILY@06 PO Last administered on 06:51; Admin Dose 175 MCG; Start 06/12/16 at 06:00 Furosemide (Lasix) 40 mg DAILY IV Last administered on 06/13/16 09:06; Admin Dose 40 MG; Start 06/12/16 at 10:30 Insulin Glargine (Lantus) 45 unit DAILY@20 SC Last administered on 06/12/16 20 :45; Admin Dose 45 UNIT; Start 06/12/16 at 20:00 Linagliptin (Tradjenta) 5 mg DAILY PO Last administered on 06/13/16 09:05; Admin Dose 5 MG; Start 06/12/16 at 19:00 Salmeterol Xinafoate/ Fluticasone (Advair 250/50 Diskus) 1 inh BID INH Last administered on 06/13/16 09:06; Admin Dose 1 INH; Start 06/12/16 at 21:00 Montelukast Sodium (Singulair) 10 mg HS PO Last administered on 06/12/16 20:30 ; Admin Dose 10 MG; Start 06/12/16 at 21:00 LAURA CUMMINS MD Jun 13, 2016 13:11
[2016-06-13] MEDS: TIOTROPIUM 18 MCG CAPSULE INHA DEV INH SCH ×2 (13:30→18:20)
[2016-06-13] MEDS ORDERED: INSULIN GLARGINE [LANtus] 3 ML PEN SC SCH (20:00)
[2016-06-13] MEDS: MONTELUKAST 10 MG TAB PO SCH (20:43)
--- NOTE | 2016-06-13 22:01 | PN ---
Date/Time of Note Date/Time of Note DATE: 06/13/16 TIME: 21:57 Assessment/Plan VTE Prophylaxis VTE Prophylaxis Intervention: LMWH Lines/Catheters IV C[facility]ter Type [facility]from [facility]): [facility] Assessment/Plan Chief Complaint/Hosp Course Assessment and plan 1. Asthma exacerbation with acute bronchitis. Continue with bronchodilators. cont on abx. transition to oral steroid per pulmonary 2. Influenza A positive. Continue on Tamiflu 3. Morbid obesity. Weight reduction advised 4. Type 2 diabetes. Continue on insulin regimen. DVT prophylaxis: Lovenox Disposition and plan: resp status does appear to be approving at present. plan to transition to oral steroid per pulm. Will follow up. d/c when medically stable Discussed plan of care with Dr. Diego Problems: Subjective 24 Hr Interval Summary Free Text/Dictation still reports some shortness of breath but less wheezing today Exam/Review of Systems Vital Signs Vitals Vital Signs Date Time Temp Pulse Resp B/P Pulse Ox O2 Delivery O2 Flow Rate FiO2 06/13/16 20:03 104 06/13/16 20:02 23 96 Nasal Cannula 2.5 06/13/16 19:31 98.9 130/64 06/12/16 16:08 32 Intake and Output 06/12/16 06/12/16 06/13/16 15:00 23:00 07:00 Intake Total 810 ml 650 ml Balance 810 ml 650 ml Exam General: morbidly obese. no s/s of distress Eyes: pupils equal round, Anicteric sclera Neck: Supple nontender, no JVD Cardiac: S1, S2 auscultated, regular rhythm and rate Pulmonary:diminished at bases. only some wheezing noted more on right lung field GI: Abdomen soft nontender nondistended, bowel sounds active Extremities:no edema ble Skin: Clean dry and intact Neurologic: Alert to person place and time and situation Results Result Diagram: 06/13/1618 06/13/1618 Results 24 hrs Laboratory Tests Test 06/12/16 22:11 06/13/16 02:34 06/13/16 06:18 06/13/16 08:13 Bedside Glucose 308 H 111 65 L White Blood Count 7.7 Red Blood Count 4.39 Hemoglobin 14.2 Hematocrit 43.8 Mean Corpuscular Volume 99.8 Mean Corpuscular Hemoglobin 32.3 Mean Corpuscular Hemoglobin Concent 32.4 Red Cell Distribution Width 14.6 H Platelet Count 92 L Mean Platelet Volume 11.1 H Neutrophils % 62.3 Lymphocytes % 23.9 Monocytes % 13.4 H Eosinophils % 0.0 Basophils % 0.1 Nucleated Red Blood Cells % 0.0 Neutrophils # 4.8 Lymphocytes # 1.8 Monocytes # 1.0 H Eosinophils # 0.0 Basophils # 0.0 Nucleated Red Blood Cells # 0.0 Sodium Level 138 Potassium Level 4.1 Chloride Level 96 L Carbon Dioxide Level 37 H Anion Gap 9 Blood Urea Nitrogen 24 H Creatinine 0.57 Glucose Level 90 # Calcium Level 8.8 Test 06/13/16 09:01 06/13/16 12:10 06/13/16 13:04 06/13/16 17:52 Bedside Glucose 161 164 179 139 Test 06/13/16 20:45 Bedside Glucose 251 H Medications Medications Current Medications Lorazepam (Ativan) 0.25 mg Q8H PRN PO ANXIETY; Start 06/10/16 at 04:00 Ondansetron HCl (Zofran Tab) 4 mg Q6H PRN PO NAUSEA AND/OR VOMITING; Start at 04:00 Metoclopramide HCl (Reglan) 10 mg Q6H PRN IV NAUSEA AND/OR VOMITING; Start at 04:00 Nitroglycerin (Nitroglycerin (Sl Tab) 0.4 Mg) 1 tab Q5M PRN SL CHEST PAIN; Start 06/10/16 at 04:00 Acetaminophen (Tylenol Tab) 650 mg Q6H PRN PO PAIN LEVEL 1-3 OR FEVER Last administered on 06/12/16 20:31; Admin Dose 650 MG; Start 06/10/16 at 04:00 Famotidine (Pepcid) 20 mg Q12 PO Last administered on 06/13/16 20:43; Admin Dose 20 MG; Start 06/10/16 at 09:00 Enoxaparin Sodium (Lovenox) 40 mg DAILY SC Last administered on 06/13/16 09:26 ; Admin Dose 40 MG; Start 06/10/16 at 09:00 Diagnostic Test (Pha) (Accu-Chek) 1 ea 02 XX Last administered on 06/13/16 02: 40; Admin Dose 1 EA; Start 06/11/16 at 02:00 Miscellaneous Information 1 ea NOTE XX ; Start 06/10/16 at 04:30 Glucose (Glutose) 15 gm Q15M PRN PO DECREASED GLUCOSE; Start 06/10/16 at 04:30 Glucose (Glutose) 22.5 gm Q15M PRN PO DECREASED GLUCOSE; Start 06/10/16 at 04: 30 Dextrose (D50w Syringe) 25 ml Q15M PRN IV DECREASED GLUCOSE; Start 06/10/16 at 04:30 Dextrose (D50w Syringe) 50 ml Q15M PRN IV DECREASED GLUCOSE; Start 06/10/16 at 04:30 Glucagon (Glucagen) 1 mg Q15M PRN IM DECREASED GLUCOSE; Start 06/10/16 at 04:30 Glucose (Glutose) 15 gm Q15M PRN BUCCAL DECREASED GLUCOSE; Start 06/10/16 at 04 :30 Oseltamivir Phosphate (Tamiflu) 75 mg BID PO Last administered on 06/13/16 20: 43; Admin Dose 75 MG; Start 06/10/16 at 11:00 Hydralazine HCl (Apresoline) 10 mg Q6H PRN IV SBP>160; Start 06/10/16 at 10:30 Enalapril Maleate (Vasotec) 2.5 mg DAILY PO Last administered on 06/13/16 09: 05; Admin Dose 2.5 MG; Start 06/10/16 at 12:00 Azithromycin (Zithromax) 500 mg DAILY PO Last administered on 06/13/16 09:05; Admin Dose 500 MG; Start 06/10/16 at 11:30 Levothyroxine Sodium (Synthroid) 175 mcg DAILY@06 PO Last administered on 06:51; Admin Dose 175 MCG; Start 06/12/16 at 06:00 Furosemide (Lasix) 40 mg DAILY IV Last administered on 06/13/16 09:06; Admin Dose 40 MG; Start 06/12/16 at 10:30 Linagliptin (Tradjenta) 5 mg DAILY PO Last administered on 06/13/16 09:05; Admin Dose 5 MG; Start 06/12/16 at 19:00 Salmeterol Xinafoate/ Fluticasone (Advair 250/50 Diskus) 1 inh BID INH Last administered on 06/13/16 20:43; Admin Dose 1 INH; Start 06/12/16 at 21:00 Montelukast Sodium (Singulair) 10 mg HS PO Last administered on 06/13/16 20:43 ; Admin Dose 10 MG; Start 06/12/16 at 21:00 Insulin Glargine (Lantus) 42 unit DAILY@20 SC Last administered on 06/13/16 20 :53; Admin Dose 42 UNIT; Start 06/13/16 at 20:00 Tiotropium [place] (Spiriva) 1 inh DAILY INH Last administered on 06/13/16 18: 20; Admin Dose 1 INH; Start 06/13/16 at 13:30 YANA NGUYEN Jun 13, 2016 22:01
[2016-06-14] VITALS (9 sets, daily range): BP systolic 132–146; BP diastolic 63–74; PULSE 85–108; RESP 18
[2016-06-14] MEDS: ACCUCHECK AT 2AM (Patients on SS coverage) XX SCH (02:55)
[2016-06-14] MEDS: LEVOTHYROXINE 175 MCG TAB PO SCH (05:27)
[2016-06-14 07:01] LABS: ADD SCAN DIFF NO
[2016-06-14 07:08] LABS: ABNORMAL IP MESSAGE 1; EOSINOPHILS % 0.2 % (0.0-7.0); HEMATOCRIT 45.4 % (37.0-47.0); HEMOGLOBIN 14.6 g/dl (12.0-16.0); LYMPHOCYTES # 1.9 10^3/ul (0.8-2.9); LYMPHOCYTES % 29.3 % (15.0-51.0); MEAN CORPUSCULAR HGB CONC 32.2 g/dl (32.0-37.0); MEAN CORPUSCULAR VOLUME 99.6 fl (82.0-101.0); MEAN PLATELET VOLUME 11.8 fl (7.4-10.4); MONOCYTE # 0.8 10^3/ul (0.3-0.9); NEUTROPHIL # 3.8 10^3/ul (1.6-7.5); NEUTROPHILS % 58.3 % (39.0-77.0); PLATELET COUNT 83 10^3/UL (140-415); RED BLOOD COUNT 4.56 10^6/ul (4.20-5.40); WHITE BLOOD COUNT 6.4 10^3/ul (4.8-10.8)
[2016-06-14 07:14] LABS: POTASSIUM 4.3 mmol/L (3.5-5.1)
[2016-06-14 07:16] LABS: CREATININE 0.62 mg/dl (0.44-1.00)
[2016-06-14 07:17] LABS: CALCIUM 8.9 mg/dl (8.4-10.2)
[2016-06-14] MEDS: ALBUTEROL/IPRATROPIUM (NEB) 3 ML AMP NEB SCH ×3 (08:27→16:32)
[2016-06-14] MEDS: metFORMIN 500 MG TAB PO SCH (09:10)
[2016-06-14] MEDS: OSELTAMIVIR 75 MG CAP PO SCH (09:11)
[2016-06-14] MEDS: FAMOTIDINE 20 MG TAB PO SCH (09:11)
[2016-06-14] MEDS: AZITHROMYCIN 250 MG TAB PO SCH (09:11)
[2016-06-14] MEDS: ENALAPRIL 2.5 MG TAB PO SCH (09:11)
[2016-06-14] MEDS: TIOTROPIUM 18 MCG CAPSULE INHA DEV INH SCH (09:11)
[2016-06-14] MEDS: LINAGLIPTIN 5 MG TABLET PO SCH (09:11)
[2016-06-14] MEDS: FUROSEMIDE 40 MG INJ IV SCH (09:12)
[2016-06-14] MEDS: SALMETEROL/FLUTICASONE 250/50 INHA INH SCH (09:12)
[2016-06-14] MEDS: INSULIN ASPART [NOVOLOG] 3 ML PEN SC SCH ×4 (09:25→12:40)
[2016-06-14] MEDS: ENOXAPARIN 40 MG/0.4 ML SYG SC SCH (09:42)
[2016-06-14] MEDS ORDERED: OSLT75C PO (10:47)
[2016-06-14] MEDS ORDERED: ADV25050 INH (10:47)
[2016-06-14] MEDS ORDERED: TIOT18CA INH (10:47)
[2016-06-14] MEDS ORDERED: FURO40TA4 PO (10:47)
[2016-06-14] MEDS ORDERED: LINA5TAB PO (10:47)
[2016-06-14] MEDS ORDERED: METF500T PO (10:47)
[2016-06-14] MEDS ORDERED: LANT3I SC (10:47)
[2016-06-14] MEDS ORDERED: ALBU18HF INHALATION (10:47)
[2016-06-14] MEDS ORDERED: AZIT500T2 PO (10:47)
[2016-06-14] MEDS ORDERED: NOVO3I SC (10:47)
[2016-06-14] MEDS ORDERED: ENAL2.5T PO (10:47)
[2016-06-14] MEDS ORDERED: LEVO175T38 PO (10:47)
[2016-06-14] MEDS ORDERED: MONT10TA24 PO (10:47)
--- NOTE | 2016-06-14 10:53 | PDOCDIS ---
Discharge Instructions DIAGNOSIS Discharge Diagnosis: 1. asthma exacerbation 2. influenza A 3. morbid obesity 4. diabetes CONDITION Patient Condition: Stable HOME CARE INSTRUCTIONS: Special Diet: carbohydrate controlled 1800 calorie FOLLOW UP/APPOINTMENTS Appointments 1. Follow up with Dr. Geraldo Montgomery in 1-2 weeks 2. Follow up with your primary care provider in 1-2 weeks YANA NGUYEN Jun 14, 2016 10:53
--- NOTE | 2016-06-14 12:56 | CONS ---
Date/Time of Note Date/Time of Note DATE: 06/14/16 TIME: 12:54 Assessment/Plan Assessment/Plan Chief Complaint/Hosp Course Pleasant 65-year-old female who reports that she does not have diabetes at home. She reports that she is unaware of this diagnosis although our admission labs demonstrated an outpatient A1c in excess of 9. She is admitted due to influenza A driven asthma exacerbation with near respiratory failure. She is on IV Solu-Medrol to help with the respiratory issues which is driving up her sugars. Again she has not been on any diabetic medications in the home environment. Problems: (1) Hx of papillary thyroid carcinoma Onset Date: ~ 05/2001 Status: Chronic Comment: She is on suppression therapy will need outpatient follow-up for this this would entail the measurement of serum thyroglobulin level and antithyroglobulin antibodies with a goal getting the TSH to less than 0.4. If there is measurable thyroglobulin this would imply recurrence (which I doubt) and then should be treated with radioactive iodine ablation (2) Diabetes mellitus type 2 in obese Status: Chronic Comment: Controlled nicely. Stable for discharge (3) Asthma exacerbation Status: Acute Comment: This is cleared up nicely with maintenance medications probably ready for discharge (4) Morbid obesity due to excess calories Status: Chronic Comment: Counseled Consultation Date/Type/Reason Admit Date/Time Jun 10, 2016 at 03:58 Initial Consult Date 06/11/16 Type of Consultation: Endocrinology Referring Provider: HERMANN CEDILLO 24 HR Interval Summary Constitutional: no complaints Detailed Summary ENT: no complaints Respiratory: no complaints Cardiovascular: no complaints Gastrointestinal: no complaints Exam/Review of Systems Vital Signs Vitals Vital Signs Date Time Temp Pulse Resp B/P Pulse Ox O2 Delivery O2 Flow Rate FiO2 06/14/16 12:27 108 06/14/16 11:55 24 97 Nasal Cannula 2.0 06/14/16 11:29 97.7 143/73 06/12/16 16:08 32 Intake and Output 06/13/16 06/13/16 06/14/16 15:00 23:00 07:00 Intake Total 720 ml 650 ml Balance 720 ml 650 ml Exam Constitutional: alert, oriented Neck: non-tender, supple Respiratory: clear to auscultation, normal air movement Cardiovascular: nl pulses, regular rate and rhythm Results Result Diagram: 06/14/16 0630 06/14/16 0630 Results 24 hrs Laboratory Tests Test 06/13/16 13:04 06/13/16 17:52 06/13/16 20:45 06/14/16 01:28 Bedside Glucose 179 139 251 H 220 Test 06/14/16 06:30 06/14/16 08:12 06/14/16 12:33 White Blood Count 6.4 Red Blood Count 4.56 Hemoglobin 14.6 Hematocrit 45.4 Mean Corpuscular Volume 99.6 Mean Corpuscular Hemoglobin 32.0 Mean Corpuscular Hemoglobin Concent 32.2 Red Cell Distribution Width 15.0 H Platelet Count 83 L Mean Platelet Volume 11.8 H Neutrophils % 58.3 Lymphocytes % 29.3 Monocytes % 12.0 H Eosinophils % 0.2 Basophils % 0.0 Nucleated Red Blood Cells % 0.0 Neutrophils # 3.8 Lymphocytes # 1.9 Monocytes # 0.8 Eosinophils # 0.0 Basophils # 0.0 Nucleated Red Blood Cells # 0.0 Sodium Level 134 L Potassium Level 4.3 Chloride Level 92 L Carbon Dioxide Level 36 H Anion Gap 10 Blood Urea Nitrogen 27 H Creatinine 0.62 Glucose Level 179 Calcium Level 8.9 Bedside Glucose 141 198 Medications Medications Current Medications Lorazepam (Ativan) 0.25 mg Q8H PRN PO ANXIETY; Start 06/10/16 at 04:00 Ondansetron HCl (Zofran Tab) 4 mg Q6H PRN PO NAUSEA AND/OR VOMITING; Start at 04:00 Metoclopramide HCl (Reglan) 10 mg Q6H PRN IV NAUSEA AND/OR VOMITING; Start at 04:00 Nitroglycerin (Nitroglycerin (Sl Tab) 0.4 Mg) 1 tab Q5M PRN SL CHEST PAIN; Start 06/10/16 at 04:00 Acetaminophen (Tylenol Tab) 650 mg Q6H PRN PO PAIN LEVEL 1-3 OR FEVER Last administered on 06/12/16 20:31; Admin Dose 650 MG; Start 06/10/16 at 04:00 Famotidine (Pepcid) 20 mg Q12 PO Last administered on 06/14/16 09:11; Admin Dose 20 MG; Start 06/10/16 at 09:00 Enoxaparin Sodium (Lovenox) 40 mg DAILY SC Last administered on 06/14/16 09:42 ; Admin Dose 40 MG; Start 06/10/16 at 09:00 Diagnostic Test (Pha) (Accu-Chek) 1 ea 02 XX Last administered on 06/14/16 02: 55; Admin Dose 1 EA; Start 06/11/16 at 02:00 Miscellaneous Information 1 ea NOTE XX ; Start 06/10/16 at 04:30 Glucose (Glutose) 15 gm Q15M PRN PO DECREASED GLUCOSE; Start 06/10/16 at 04:30 Glucose (Glutose) 22.5 gm Q15M PRN PO DECREASED GLUCOSE; Start 06/10/16 at 04: 30 Dextrose (D50w Syringe) 25 ml Q15M PRN IV DECREASED GLUCOSE; Start 06/10/16 at 04:30 Dextrose (D50w Syringe) 50 ml Q15M PRN IV DECREASED GLUCOSE; Start 06/10/16 at 04:30 Glucagon (Glucagen) 1 mg Q15M PRN IM DECREASED GLUCOSE; Start 06/10/16 at 04:30 Glucose (Glutose) 15 gm Q15M PRN BUCCAL DECREASED GLUCOSE; Start 06/10/16 at 04 :30 Oseltamivir Phosphate (Tamiflu) 75 mg BID PO Last administered on 06/14/16 09: 11; Admin Dose 75 MG; Start 06/10/16 at 11:00 Hydralazine HCl (Apresoline) 10 mg Q6H PRN IV SBP>160; Start 06/10/16 at 10:30 Enalapril Maleate (Vasotec) 2.5 mg DAILY PO Last administered on 06/14/16 09: 11; Admin Dose 2.5 MG; Start 06/10/16 at 12:00 Azithromycin (Zithromax) 500 mg DAILY PO Last administered on 06/14/16 09:11; Admin Dose 500 MG; Start 06/10/16 at 11:30 Levothyroxine Sodium (Synthroid) 175 mcg DAILY@06 PO Last administered on 05:27; Admin Dose 175 MCG; Start 06/12/16 at 06:00 Furosemide (Lasix) 40 mg DAILY IV Last administered on 06/14/16 09:12; Admin Dose 40 MG; Start 06/12/16 at 10:30 Linagliptin (Tradjenta) 5 mg DAILY PO Last administered on 06/14/16 09:11; Admin Dose 5 MG; Start 06/12/16 at 19:00 Salmeterol Xinafoate/ Fluticasone (Advair 250/50 Diskus) 1 inh BID INH Last administered on 06/14/16 09:12; Admin Dose 1 INH; Start 06/12/16 at 21:00 Montelukast Sodium (Singulair) 10 mg HS PO Last administered on 06/13/16 20:43 ; Admin Dose 10 MG; Start 06/12/16 at 21:00 Insulin Glargine (Lantus) 42 unit DAILY@20 SC Last administered on 06/13/16 20 :53; Admin Dose 42 UNIT; Start 06/13/16 at 20:00 Tiotropium [place] (Spiriva) 1 inh DAILY INH Last administered on 06/14/16 09: 11; Admin Dose 1 INH; Start 06/13/16 at 13:30 LAURA CUMMINS MD Jun 14, 2016 12:56
--- NOTE | 2016-06-14 13:37 | CONS ---
Date/Time of Note Date/Time of Note DATE: 06/14/16 TIME: 13:35 Assessment/Plan Assessment/Plan Additional Assessment/Plan Assessment recommendations; 1. Patient admitted for acute bronchitis with bronchospasm with significant clinical improvement. 2. Mild thrombocytopenia with stable platelet count. 3. Other comorbidities including diabetes, hypertension, hypothyroidism all appear fairly stable. She can be discharged home. Consultation Date/Type/Reason Admit Date/Time Jun 10, 2016 at 03:58 Initial Consult Date 06/11/16 Type of Consultation: Pulmonary Reason for Consultation Patient condition is stable. Wants to go home. Denies any coughing wheezing shortness of breath. Any fever chills. General exam; elderly lady, currently in no distress awake and alert. Sitting in a chair by bedside. Referring Provider: HERMANN CEDILLO Exam/Review of Systems Vital Signs Vitals Vital Signs Date Time Temp Pulse Resp B/P Pulse Ox O2 Delivery O2 Flow Rate FiO2 06/14/16 12:27 108 06/14/16 11:55 24 97 Nasal Cannula 2.0 06/14/16 11:29 97.7 143/73 06/12/16 16:08 32 Intake and Output 06/13/16 06/13/16 06/14/16 15:00 23:00 07:00 Intake Total 720 ml 650 ml Balance 720 ml 650 ml Exam HEENT examination; supple neck, no JVD. No lymphadenopathy. Midline trachea. No thyromegaly. Pharynx is clear. Chest examination; diminished but clear breath sounds bilaterally. S1-S2 audible, no murmurs. Regular rhythm. Abdomen examination; soft, nontender. No organomegaly. Bowel sounds audible. Extremity examination; no peripheral edema. DOCTOR OF OSTEOPATHY examination; no focal deficit. Results Result Diagram: 06/14/16 0630 06/14/16 0630 Results 24 hrs Laboratory Tests Test 06/13/16 17:52 06/13/16 20:45 06/14/16 01:28 06/14/16 06:30 Bedside Glucose 139 251 H 220 White Blood Count 6.4 Red Blood Count 4.56 Hemoglobin 14.6 Hematocrit 45.4 Mean Corpuscular Volume 99.6 Mean Corpuscular Hemoglobin 32.0 Mean Corpuscular Hemoglobin Concent 32.2 Red Cell Distribution Width 15.0 H Platelet Count 83 L Mean Platelet Volume 11.8 H Neutrophils % 58.3 Lymphocytes % 29.3 Monocytes % 12.0 H Eosinophils % 0.2 Basophils % 0.0 Nucleated Red Blood Cells % 0.0 Neutrophils # 3.8 Lymphocytes # 1.9 Monocytes # 0.8 Eosinophils # 0.0 Basophils # 0.0 Nucleated Red Blood Cells # 0.0 Sodium Level 134 L Potassium Level 4.3 Chloride Level 92 L Carbon Dioxide Level 36 H Anion Gap 10 Blood Urea Nitrogen 27 H Creatinine 0.62 Glucose Level 179 Calcium Level 8.9 Test 06/14/16 08:12 06/14/16 12:33 Bedside Glucose 141 198 Medications Medications Current Medications Lorazepam (Ativan) 0.25 mg Q8H PRN PO ANXIETY; Start 06/10/16 at 04:00 Ondansetron HCl (Zofran Tab) 4 mg Q6H PRN PO NAUSEA AND/OR VOMITING; Start at 04:00 Metoclopramide HCl (Reglan) 10 mg Q6H PRN IV NAUSEA AND/OR VOMITING; Start at 04:00 Nitroglycerin (Nitroglycerin (Sl Tab) 0.4 Mg) 1 tab Q5M PRN SL CHEST PAIN; Start 06/10/16 at 04:00 Acetaminophen (Tylenol Tab) 650 mg Q6H PRN PO PAIN LEVEL 1-3 OR FEVER Last administered on 06/12/16 20:31; Admin Dose 650 MG; Start 06/10/16 at 04:00 Famotidine (Pepcid) 20 mg Q12 PO Last administered on 06/14/16 09:11; Admin Dose 20 MG; Start 06/10/16 at 09:00 Enoxaparin Sodium (Lovenox) 40 mg DAILY SC Last administered on 06/14/16 09:42 ; Admin Dose 40 MG; Start 06/10/16 at 09:00 Diagnostic Test (Pha) (Accu-Chek) 1 ea 02 XX Last administered on 06/14/16 02: 55; Admin Dose 1 EA; Start 06/11/16 at 02:00 Miscellaneous Information 1 ea NOTE XX ; Start 06/10/16 at 04:30 Glucose (Glutose) 15 gm Q15M PRN PO DECREASED GLUCOSE; Start 06/10/16 at 04:30 Glucose (Glutose) 22.5 gm Q15M PRN PO DECREASED GLUCOSE; Start 06/10/16 at 04: 30 Dextrose (D50w Syringe) 25 ml Q15M PRN IV DECREASED GLUCOSE; Start 06/10/16 at 04:30 Dextrose (D50w Syringe) 50 ml Q15M PRN IV DECREASED GLUCOSE; Start 06/10/16 at 04:30 Glucagon (Glucagen) 1 mg Q15M PRN IM DECREASED GLUCOSE; Start 06/10/16 at 04:30 Glucose (Glutose) 15 gm Q15M PRN BUCCAL DECREASED GLUCOSE; Start 06/10/16 at 04 :30 Oseltamivir Phosphate (Tamiflu) 75 mg BID PO Last administered on 06/14/16 09: 11; Admin Dose 75 MG; Start 06/10/16 at 11:00 Hydralazine HCl (Apresoline) 10 mg Q6H PRN IV SBP>160; Start 06/10/16 at 10:30 Enalapril Maleate (Vasotec) 2.5 mg DAILY PO Last administered on 06/14/16 09: 11; Admin Dose 2.5 MG; Start 06/10/16 at 12:00 Azithromycin (Zithromax) 500 mg DAILY PO Last administered on 06/14/16 09:11; Admin Dose 500 MG; Start 06/10/16 at 11:30 Levothyroxine Sodium (Synthroid) 175 mcg DAILY@06 PO Last administered on 05:27; Admin Dose 175 MCG; Start 06/12/16 at 06:00 Furosemide (Lasix) 40 mg DAILY IV Last administered on 06/14/16 09:12; Admin Dose 40 MG; Start 06/12/16 at 10:30 Linagliptin (Tradjenta) 5 mg DAILY PO Last administered on 06/14/16 09:11; Admin Dose 5 MG; Start 06/12/16 at 19:00 Salmeterol Xinafoate/ Fluticasone (Advair 250/50 Diskus) 1 inh BID INH Last administered on 06/14/16 09:12; Admin Dose 1 INH; Start 06/12/16 at 21:00 Montelukast Sodium (Singulair) 10 mg HS PO Last administered on 06/13/16 20:43 ; Admin Dose 10 MG; Start 06/12/16 at 21:00 Insulin Glargine (Lantus) 42 unit DAILY@20 SC Last administered on 06/13/16 20 :53; Admin Dose 42 UNIT; Start 06/13/16 at 20:00 Tiotropium [place] (Spiriva) 1 inh DAILY INH Last administered on 06/14/16 09: 11; Admin Dose 1 INH; Start 06/13/16 at 13:30 PAOLA JIMENES Jun 14, 2016 13:37
[2016-06-14] MEDS ORDERED: INSULIN ASPART [NOVOLOG] 3 ML PEN SC SCH (17:55)
== END 2016-06-14 17:55 | disposition home or self-care (01) | DRG 194 ==
LOC: FTE 19:20 → TEL 06-10 03:58
PROVIDERS: ADMIT Family Medicine; ATTEND Family Medicine
PROC: 4A033R1 Measurement of Arterial Saturation, Peripheral, Percutaneous Approach (ICD-10-PCS; principal; 2016-06-09)
DX: J10.00 Influenza due to other identified influenza virus with unspecified type of pneumonia (principal); J45.901 Unspecified asthma with (acute) exacerbation; E88.81 Metabolic syndrome and other insulin resistance; D69.6 Thrombocytopenia, unspecified; I11.0 Hypertensive heart disease with heart failure; I50.9 Heart failure, unspecified; E11.65 Type 2 diabetes mellitus with hyperglycemia; Z68.42 Body mass index [BMI] 45.0-49.9, adult; J10.1 Influenza due to other identified influenza virus with other respiratory manifestations; J20.9 Acute bronchitis, unspecified; E66.01 Morbid (severe) obesity due to excess calories; E03.9 Hypothyroidism, unspecified; Z85.850 Personal history of malignant neoplasm of thyroid; Z92.3 Personal history of irradiation
CPT/HCPCS: 36415; 36600; 71010; 80048; 80061; 80198; 82550; 82553; 82803; 82947; 82962; 83036; 83735; 83880; 84100; 84443; 84484; 85025; 85610; 85730; 86803; 87040; 87340; 87400; 87502; 93005; 94640; 94644; 94664; 96372; 97161; J1650; J1815; J1940; J2920; J2930; J7030

== ENCOUNTER 2016-09-07 07:45 | Day surgery (SDC) | payer MEDICARE, OTHER ==
[~2016-09-07] VITALS: Ht 160 cm; Wt 100.0 kg
[~2016-09-07 07:45] MED LIST changes: +ADV25050 INH; +ALBU18HF INHALATION; +AZIT500T2 PO; +ENAL2.5T PO; +FURO40TA4 PO; +LANT3I SC; +LEVO175T38 PO; +LINA5TAB PO; +METF500T PO; +MONT10TA24 PO; +NOVO3I SC; +OSLT75C PO; +TIOT18CA INH
[2016-09-07] MEDS ORDERED: PROPOFOL 20 ML ONE ×2 (08:07→09:26)
[2016-09-07 08:30] VITALS: Ht 160 cm; Wt 100.0 kg
[2016-09-07] MEDS ORDERED: FERROUS SULFATE PO (09:02)
[2016-09-07] MEDS ORDERED: JANUVIA PO (09:02)
[2016-09-07] MEDS ORDERED: PANTOPRAZOLE PO (09:02)
[2016-09-07] MEDS ORDERED: COLACE PO (09:02)
[2016-09-07] MEDS ORDERED: IRBESARTAN PO (09:02)
[2016-09-07 09:18] VITALS: BP 122/56; PULSE 82; RESP 19
--- NOTE | 2016-09-07 10:57 | GILP ---
DATE OF PROCEDURE: 09/07/2016 NAME OF PROCEDURES: 1. Esophagogastroduodenoscopy and biopsy. 2. Colonoscopy and biopsy. SURGEON: Sara Lang MD PREOPERATIVE DIAGNOSES: 1. Severe iron deficiency anemia. 2. Upper abdominal pain. POSTOPERATIVE DIAGNOSES: 1. The patient had 1+ esophageal varices. 2. Multiple ulcerated gastric polyps and biopsies were taken for histopathology. 3. Gastritis with erosions. 4. Colonoscopy all the way to the cecum. 5. Multiple small colon polyps were removed using the biopsy forceps. 6. 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 7. Diverticulosis of the colon. 8. Internal hemorrhoids. INDICATION FOR THE PROCEDURE: Ms. Erika Swanson is a 66-year-old female patient who has severe iron deficiency anemia. She also had upper abdominal pain. Patient was scheduled for endoscopy and colo noscopy for further evaluation. The procedures and possible complications were well explained to the patient. She understood and co nsented to the procedure. DESCRIPTION OF PROCEDURE: Under the influence of anesthesia, the gastroscope was carefully introduc ed into the esophagus and under direct vision, it was advanced to the stomach and through the pyloru s into the duodenal bulb and descending duodenum. FINDINGS: ESOPHAGUS: The patient had 1+ esophageal varices. STOMACH: She had multiple ulcerated gastric polyps and biopsies were taken for histopathology. The patient also had gastritis with erosions. The colonoscope was carefully introduced in the rectum and under direct vision, it was advanced all the way to the cecum. FINDINGS: The patient had multiple small colon polyps and they were removed using the biopsy forcep s. She was also noted to have multiple angiodysplastic lesions in the colon. She had diverticulosi s of the colon and internal hemorrhoids. She tolerated the procedures very well and there was no complication from the procedures. At the en d of the procedures, she was awake with stable vital signs and she was discharged home to the care o f her family. IMPRESSION: 1. There are 1+ esophageal varices. 2. Multiple ulcerated gastric polyps and biopsies were taken for histopathology. 3. Gastritis with erosions. 4. Colonoscopy all the way to the cecum. 5. Multiple small colon polyps were removed using the biopsy forceps. 6. 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 7. Diverticulosis of the colon. 8. Internal hemorrhoids. PLAN: 1. Pantoprazole 40 mg p.o. b.i.d. 2. Await histopathology reports. Next screening colonoscopy in 5 years. 3. Continue ferrous sulfate. Dictated By: SARA ABREU/STIVEN Conf#: [id number] DID#: [id number] CC: SARA LANG MD;*EndCC*
== END 2016-09-07 11:46 | disposition home or self-care (01) ==
LOC: GIL 07:45
PROVIDERS: ATTEND Internal Medicine Gastroenterology
DX: I85.00 Esophageal varices without bleeding (principal); K29.60 Other gastritis without bleeding; D12.5 Benign neoplasm of sigmoid colon; K57.90 Diverticulosis of intestine, part unspecified, without perforation or abscess without bleeding; E11.9 Type 2 diabetes mellitus without complications; I10 Essential (primary) hypertension; E66.01 Morbid (severe) obesity due to excess calories; Z68.39 Body mass index [BMI] 39.0-39.9, adult; Z85.850 Personal history of malignant neoplasm of thyroid; E03.9 Hypothyroidism, unspecified; D50.9 Iron deficiency anemia, unspecified
CPT/HCPCS: 82962; 88305; 88312

== ENCOUNTER 2016-12-03 20:27 | Emergency (ER) | payer OTHER, MEDICARE ==
[~2016-12-03] VITALS: Ht 165.1 cm; Wt 118.0 kg
[~2016-12-03 20:27] MED LIST changes: -ADV25050 INH; -ALBU18HF INHALATION; -AZIT500T2 PO; +COLACE PO; -ENAL2.5T PO; +FERROUS SULFATE PO; -FURO40TA4 PO; +IRBESARTAN PO; +JANUVIA PO; -LINA5TAB PO; -MONT10TA24 PO; -NAPR-260 PO; -OSLT75C PO; +PANTOPRAZOLE PO; -TIOT18CA INH
[2016-12-03 20:44] VITALS: Ht 165.1 cm; Wt 118.0 kg
[2016-12-03] MEDS ORDERED: traMADol 50 MG TAB PO ONE (23:00)
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
--- NOTE | 2016-12-04 00:49 | RADRPT ---
PROCEDURE: CT Lumbar Spine without contrast. CLINICAL INDICATION: Lumbar spine pain. TECHNIQUE: The study was performed on a multislice multidetector CT scanner. Spiral axial 1 mm im ages were obtained through the lumbar spine without intravenous contrast. 1 or more of the following dose reduction techniques were utilized: Automated exposure control, adjustment of the mA and/or k V according to patient's size, iterative reconstruction technique. Coronal and sagittal reformation s were obtained. The images were reviewed on a PACS workstation. RADIATION DOSE: CTDIvol: 38.5 mGyDLP: 1272.1 mGy-cm COMPARISON: No prior studies are available for comparison. FINDINGS: There are flowing anterior osteophytes from T10-L2 consistent with DISH . There is severe facet spon dylosis at L4-5 with 5 mm of anterolisthesis. The vertebral body heights are maintained. The marrow density is within normal limits. There is no evidence of fracture or dislocation. The paraspinal sof t tissues unremarkable. No significant paraspinal soft tissue swelling. L1-L2: There is a 3 mm annular disc bulge. The thecal sac measures 10 mm midline AP diameter. Ther e is mild narrowing of both lateral recesses. There is mild bilateral neural foraminal narrowing. Th ere is mild bilateral facet spondylosis. L2-L3: There is a 3-4 mm annular disc bulge. There is mild bilateral facet hypertrophy. There is mi ld prominence of the dorsal epidural fat. The thecal sac measures 7.0 mm midline AP diameter. There is moderate narrowing of both lateral recesses. There is moderate bilateral neural foraminal narrowi ng. L3-L4: There is a 2-3 mm annular disc bulge. The thecal sac measures 6.8 mm midline AP diameter. Th ere is mild prominence of the dorsal epidural fat. There is moderate narrowing of both lateral reces ses. There is mild to moderate bilateral facet spondylosis with buckling ligamentum flavum. There is mild to moderate bilateral neural foraminal narrowing. L4-L5: There is severe facet spondylosis with buckling of the ligamentum flavum and reciprocal mold ing. There is subsequent grade 1 anterolisthesis of L4 on L5. There is unroofing of the disc, with superimposed 2 mm annular disc bulge. There is severe narrowing of the central thecal sac, measuri ng 4-5 mm in midline AP diameter. There is severe narrowing of both lateral recesses. There is sev ere bilateral neural foraminal narrowing. L5-S1: There is a 2-3 mm annular disc bulge asymmetric to the foraminal regions. The thecal sac an d lateral recesses are patent. There is mild bilateral facet spondylosis. There is moderate bilater al neural foraminal narrowing. IMPRESSION: 1. No acute abnormality of the lumbar spine. No evidence of fracture. 2. Severe facet spondylosis at L4-5 with grade 1 anterolisthesis and subsequent severe spinal steno sis, severe narrowing of both lateral recesses and severe bilateral neural foraminal narrowing. 3. Mild to moderate spondylosis at L2-3, L4-5 with moderate spinal stenosis at these levels and mod erate narrowing of both lateral recesses. RPTAT: HGAS .Samuel Rivas MD, MD Date Time Electronically viewed and signed by .Samuel Rivas MD, on 12/04/2016 00:48 .S/
--- NOTE | 2016-12-04 01:28 | RADRPT ---
PROCEDURE: XR Chest. CLINICAL INDICATION: Shortness of breath. TECHNIQUE: AP Portable chest. COMPARISON: 06/12/2016 FINDINGS: There is moderate cardiomegaly. The lungs are clear. The osseous structures are unremarkable. IMPRESSION: No acute findings. RPTAT: HIKT .Earl Madrid MD, Date Time Electronically viewed and signed by .Earl Madrid MD, on 12/04/2016 01:27 .T/
--- NOTE | 2016-12-04 01:29 | RADRPT ---
PROCEDURE: XR bilateral knees. CLINICAL INDICATION: Bilateral knee pain. TECHNIQUE: 9 views of the bilateral knees. COMPARISON: None available FINDINGS: Right knee: There is no acute fracture or dislocation. There is minimal tricompartmental osteophyt osis. No joint effusion is identified. Left knee: There is no acute fracture or dislocation. There is minimal tricompartmental osteophytos is. Chondrocalcinosis of the lateral meniscus is noted. No joint effusion is identified. IMPRESSION: 1. No acute fracture or dislocation of the bilateral knees. 2. Minimal tricompartmental osteophytosis in both knees. 3. Chondrocalcinosis of the lateral meniscus in the left knee. RPTAT: HTAR .Conor Hamilton MD, MD Date Time Electronically viewed and signed by .Conor Hamilton MD, on 12/04/2016 01:29 .R/
[2016-12-04] MEDS ORDERED: IBUP400T22 PO (01:35)
[2016-12-04] MEDS ORDERED: TRAM50TA2 PO (01:35)
[2016-12-04 01:44] VITALS: BP 165/74; PULSE 86; RESP 18; TEMP 98.3
== END 2016-12-04 01:47 | disposition home or self-care (01) ==
LOC: FTE 20:27
DX: S89.92XA Unspecified injury of left lower leg, initial encounter (principal); S29.011A Strain of muscle and tendon of front wall of thorax, initial encounter; S39.012A Strain of muscle, fascia and tendon of lower back, initial encounter; S89.91XA Unspecified injury of right lower leg, initial encounter; E11.9 Type 2 diabetes mellitus without complications; I10 Essential (primary) hypertension; V89.2XXA Person injured in unspecified motor-vehicle accident, traffic, initial encounter; Z79.4 Long term (current) use of insulin; Z79.84 Long term (current) use of oral hypoglycemic drugs
CPT/HCPCS: 71010; 72131; 93005

== ENCOUNTER 2017-06-20 18:18 | Emergency (ER) | END 2017-06-20 21:48 | disposition home or self-care (01) ==

== ENCOUNTER 2017-07-28 22:00 | Emergency (ER) | END 2017-07-29 00:23 | disposition home or self-care (01) ==

== ENCOUNTER 2018-09-17 17:12 | Emergency (ER) | payer MEDICARE, OTHER ==
[~2018-09-17] VITALS: Wt 123.8 kg
[~2018-09-17 17:12] MED LIST changes: +CIPR500T4 PO; +IBUP-1542 PO; +IBUP-1561 PO; +TRAM50TA2 PO
[2018-09-18] MEDS ORDERED: LIDOCAINE/MYLANTA 40 ML BTL PO ONE
--- NOTE | 2018-09-18 00:27 | ERD ---
ER Documentation Chief Complaint Chief Complaint MID UPPER ABD PAIN, N/V HPI This is a 68-year-old female who presents for evaluation of abdominal pain. Patient states she has a long-standing history of gastritis. This feels similar to prior episodes, it is associated with nausea and vomiting. She denies fever, denies any urinary symptoms, she denies chest pain or shortness of breath. There are no alleviating or aggravating factors. Symptoms have been ongoing for last 2 days, chronically for several years. ROS All systems reviewed and are negative except as per history of present illness. Medications Home Meds Active Scripts Ondansetron Hcl* (Zofran*) 8 Mg Tablet, 8 MG PO Q6H PRN for NAUSEA AND OR VOMITING, #14 TAB Prov:NAILA NAGEL MD 09/18/18 Ciprofloxacin Hcl* (Ciprofloxacin Hcl*) 500 Mg Tablet, 500 MG PO BID for 7 Days, TAB Prov:JEFRY KEYES 07/28/17 Ibuprofen* (Motrin*) 600 Mg Tab, 600 MG PO Q6, #20 TAB Prov:JEFRY JENKINS PA-C 06/20/17 Ibuprofen* (Motrin*) 400 Mg Tab, 400 MG PO Q6H PRN for PAIN AND OR ELEVATED TEMP, #30 TAB Prov:IQRA COTO NP 12/04/16 Tramadol HCl (Tramadol HCl) 50 Mg Tablet, 50 MG PO Q6 PRN for SEVERE PAIN LEVEL 7-10, #20 TAB Prov:IQRA COTO NP 12/04/16 Insulin Glargine* (Lantus*) 100 Unit/Ml Soln, 42 UNIT SC DAILY@20 for 30 Days Prov:YANA NGUYEN NP 06/14/16 Levothyroxine Sodium* (Levoxyl*) 175 Mcg Tablet, 175 MCG PO DAILY@06 for 30 Days, TAB Prov:YANA NGUYEN NP 06/14/16 Metformin Hcl (Glucophage) 500 Mg Tablet, 1000 MG PO BID WITH MEALS for 30 Days, TAB Prov:YANA NGUYEN NP 06/14/16 Insulin Aspart* (Novolog Insulin Pen*) 100 Unit/Ml Soln, 15 UNIT SC WITH MEALS for 30 Days Prov:YANA NGUYEN NP 06/14/16 Reported Medications [Ferrous Sulfate] No Conflict Check, PO DAILY 09/07/16 [Pantoprazole] No Conflict Check, PO DAILY 09/07/16 [Colace] No Conflict Check, PO DAILY 09/07/16 [Januvia] No Conflict Check, PO DAILY 09/07/16 [Irbesartan] No Conflict Check, PO DAILY 09/07/16 Allergies Allergies: Coded Allergies: codeine (Verified Allergy, Mild, 12/03/16) diphenhydramine (Verified Allergy, Mild, 12/03/16) PMhx/Soc History of Surgery: Yes (THYROID, EXPLORATORY LAP, C SEC X'S 3, HERNIA) Anesthesia Reaction: No Hx Neurological Disorder: No Hx Respiratory Disorders: No Hx Cardiac Disorders: Yes (HTN) Hx Psychiatric Problems: No Hx Miscellaneous Medical Probl: Yes (DM HTN) Hx Alcohol Use: No Hx Substance Use: No Hx Tobacco Use: No FmHx Family History: diabetes Physical Exam Vitals Vital Signs Date Temp Pulse Resp B/P (MAP) Pulse Ox O2 O2 Flow FiO2 Time Delivery Rate 09/18/18 96 20 124/55 97 Nasal 2.0 01:50 (78) Cannula 09/17/18 98.4 93 24 133/60 98 17:50 (84) Physical Exam Const: No acute distress Head: Atraumatic Eyes: Normal Conjunctiva ENT: Normal External Ears, Nose and Mouth. Neck: Full range of motion. No meningismus. Resp: Clear to auscultation bilaterally Cardio: Regular rate and rhythm, no murmurs Abd: Soft, obese, tenderness over the epigastric area, no rebound or guarding. Normal bowel sounds Skin: No petechiae or rashes Back: No midline or flank tenderness Ext: No cyanosis, or edema Neur: Awake and alert Psych: Normal Mood and Affect Result Diagram: 09/18/18 0021 09/18/18 0021 Results 24 hrs Laboratory Tests Test 09/18/18 00:21 White Blood Count 12.4 10^3/ul Red Blood Count 4.11 10^6/ul Hemoglobin 10.4 g/dl Hematocrit 34.1 % Mean Corpuscular Volume 83.0 fl Mean Corpuscular Hemoglobin 25.3 pg Mean Corpuscular Hemoglobin Concent 30.5 g/dl Red Cell Distribution Width 17.8 % Platelet Count 153 10^3/UL Mean Platelet Volume 10.3 fl Immature Granulocytes % 0.500 % Neutrophils % 87.9 % Lymphocytes % 5.8 % Monocytes % 4.9 % Eosinophils % 0.7 % Basophils % 0.2 % Nucleated Red Blood Cells % 0.0 /100WBC Immature Granulocytes # 0.060 10^3/ul Neutrophils # 10.9 10^3/ul Lymphocytes # 0.7 10^3/ul Monocytes # 0.6 10^3/ul Eosinophils # 0.1 10^3/ul Basophils # 0.0 10^3/ul Nucleated Red Blood Cells # 0.0 10^3/ul Urine Color ULISES Urine Clarity CLEAR Urine pH 6.0 Urine Specific Sapello 1.027 Urine Ketones NEGATIVE mg/dL Urine Nitrite NEGATIVE mg/dL Urine Bilirubin NEGATIVE mg/dL Urine Urobilinogen 2+ mg/dL Urine Leukocyte Esterase NEGATIVE Rosa/ul Urine Hemoglobin NEGATIVE mg/dL Urine Glucose NEGATIVE mg/dL Urine Total Protein NEGATIVE mg/dl Sodium Level 137 mmol/L Potassium Level 4.6 mmol/L Chloride Level 97 mmol/L Carbon Dioxide Level 31 mmol/L Anion Gap 9 Blood Urea Nitrogen 21 mg/dl Creatinine 0.68 mg/dl Est Glomerular Filtrat Rate mL/min > 60 mL/min Glucose Level 195 mg/dl Calcium Level 8.7 mg/dl Total Bilirubin 0.8 mg/dl Direct Bilirubin 0.00 mg/dl Indirect Bilirubin 0.8 mg/dl Aspartate Amino Transf (AST/SGOT) 70 IU/L Alanine Aminotransferase (ALT/SGPT) 64 IU/L Alkaline Phosphatase 249 IU/L Troponin I < 0.012 ng/ml Total Protein 8.5 g/dl Albumin 3.8 g/dl Globulin 4.70 g/dl Albumin/Globulin Ratio 0.80 Lipase 40 U/L Current Medications Medications Dose Sig/Carson Start Time Status Last (Trade) Ordered Route PRN Stop Time Admin Dose Reason Admin 40 ml ONCE ONCE 09/18/18 DC 09/18/18 Miscellaneous PO 00:00 09/18/18 00:22 Medication 00:01 (Gi Cocktail (2)) Procedures/MDM This is a 68-year-old female presents for evaluation of abdominal pain. Diff erential diagnosis includes pancreatitis, intra-abdominal infection such as appendicitis or diverticulitis. Pyelonephritis also considered, I have a low suspicion for acute coronary syndrome but given her age and female gender, as well as diabetes, atypical angina is a consideration, and a cardiac work-up was ordered although suspicion is lower for this. CT abdomen pelvis and labs ordered to evaluate for her abdominal pain. EKG: Rate/Rhythm: Normal Sinus Rhythm QRS, ST, T-waves: No changes consistent w/ acute ischemia Impression: No evidence of ischemia or arrhythmia 2:20 AM: Patient CT of the pelvis showed no acute findings, cirrhosis was noted, I had an extensive discussion with the patient regarding this. Apparently she has a history of a prior thyroid cancer, which is stable but after the surgery she had significant weight gain and has never been able to lose the weight since. Otherwise there is no evidence of infection, patient feels comfortable going home, at discharge she was in no distress. Departure Diagnosis: Primary Impression: Abdominal pain Abdominal location: unspecified location Qualified Codes: R10.9 - Unspecified abdominal pain Condition: Stable NAILA NAGEL MD Sep 18, 2018 00:27
[2018-09-18] MEDS ORDERED: ONDA8TAB9 PO (02:26)
[2018-09-18 03:13] VITALS: BP 118/63; PULSE 92; RESP 21
== END 2018-09-18 03:22 | disposition home or self-care (01) ==
LOC: E/R 17:12
DX: R10.9 Unspecified abdominal pain (principal); I10 Essential (primary) hypertension; E11.9 Type 2 diabetes mellitus without complications; Z79.4 Long term (current) use of insulin
CPT/HCPCS: 36415; 71045; 74176; 80053; 81003; 83690; 84484; 85025; 93005

== ENCOUNTER 2018-11-05 19:59 | Emergency (ER) | payer MEDICARE, OTHER ==
[~2018-11-05] VITALS: Ht 152.4 cm; Wt 200.0 kg
[~2018-11-05 19:59] MED LIST changes: +ONDA8TAB9 PO
[2018-11-05 20:18] VITALS: Ht 152.4 cm; Wt 200.0 kg
[2018-11-05] MEDS ORDERED: KETOROLAC 30 MG INJ IM ONE (23:42)
[2018-11-06 01:24] VITALS: BP 128/59; PULSE 85; RESP 20
== END 2018-11-06 01:27 | disposition home or self-care (01) ==
LOC: FTE 19:59 → E/R 11-06 01:27
DX: M25.512 Pain in left shoulder (principal); E11.9 Type 2 diabetes mellitus without complications; I10 Essential (primary) hypertension; E66.01 Morbid (severe) obesity due to excess calories; J44.9 Chronic obstructive pulmonary disease, unspecified; Z68.45 Body mass index [BMI] 70 or greater, adult; Z79.4 Long term (current) use of insulin
CPT/HCPCS: 36415; 73030; 96372; 99284; J1885